=== PATIENT | female | born 1985 | race Caucasian/White ===

== ENCOUNTER 2017-07-16 17:05 | Emergency (ER) | payer OTHER ==
[2017-07-16] MEDS ORDERED: NACL 0.9% 1000 ML 1,000 ML IV ONE ×2 (17:35→20:29)
[2017-07-16] MEDS ORDERED: MORPHINE IV ONE ×2 (17:35→19:49)
--- NOTE | 2017-07-16 17:52 | Emergency Department Report ---
HPI - General Chief Complaint: Abdominal Pain Time Seen by Provider: 07/16/17 17:29 - HPI HPI: This is a 32 year-old female presents to the emergency department via EMS with complaint of some midsternal chest discomfort as well as some upper abdominal pain, associated with nausea and vomiting, that has been going on since this morning. She did not take anything for her symptoms prior to presentation. She has a history of an appendectomy and previous back surgery, otherwise denies any past medical history. She does not have a primary care physician. She occasionally will smoke marijuana and drink alcohol but denies any excessive use today and denies any other illicit drug use. No recent travel or sick contacts at home. She denies tobacco smoking. ED Past Medical Hx - Past Medical History Previous Medical History?: No - Surgical History Past Surgical History?: Yes Hx Appendectomy: Yes Additional Surgical History: Back surgery - Social History Smoking Status: Current Some Day Smoker Substance Use Type: Alcohol, Marijuana - Medications Home Medications: Home Medications Medication Instructions Recorded Confirmed Last Taken Type HYDROcodone/APAP 5-325 [[place] 1 each PO Q6HR PRN #10 tablet 07/16/17 Unknown Rx 5/325] Metoclopramide [Reglan] 10 mg PO TID PRN #10 tab 07/16/17 Unknown Rx ED Review of Systems ROS: Stated complaint: N/V,BODY PAIN Other details as noted in HPI Comment: All other systems reviewed and negative Constitutional: denies: chills, fever Eyes: denies: eye pain, eye discharge, vision change ENT: denies: ear pain, throat pain Respiratory: denies: cough, shortness of breath, wheezing Cardiovascular: chest pain. denies: palpitations Gastrointestinal: abdominal pain, nausea, vomiting Genitourinary: denies: urgency, dysuria, discharge Musculoskeletal: denies: back pain, joint swelling, arthralgia Skin: denies: rash, lesions Neurological: denies: headache, weakness, paresthesias Physical Exam - Physical Exam Vital Signs: Vital Signs 07/16/17 07/16/17 07/16/17 17:12 17:14 17:35 Temperature 97.7 F Pulse Rate 83 69 Respiratory 20 18 16 Rate Blood Pressure 142/89 [Right] O2 Sat by Pulse 100 100 Oximetry 07/16/17 17:38 Temperature Pulse Rate Respiratory 20 Rate Blood Pressure [Right] O2 Sat by Pulse 100 Oximetry Physical Exam: GENERAL: The patient is well-developed well-nourished. HENT: Normocephalic. Atraumatic. Patient has moist mucous membranes. EYES: Extraocular motions are intact. Pupils equal reactive to light bilaterally. NECK: Supple. Trachea is midline. CHEST/LUNGS: Clear to auscultation. No tachypnea or accessory muscle use. There is no respiratory distress noted. HEART/CARDIOVASCULAR: Regular. There is no tachycardia. There is no gallop rub or murmur. ABDOMEN: Abdomen is soft. Tenderness to palpation to the upper quadrants of the abdomen. No guarding or rebound tenderness. Patient has normal bowel sounds. There is no abdominal distention. SKIN: Skin is warm and dry. NEURO: The patient is awake, alert, and oriented. The patient is cooperative. The patient has no focal neurologic deficits. The patient has normal speech. MUSCULOSKELETAL: There is no tenderness or deformity. There is no limitation range of motion. There is no evidence of acute injury. ED Course Vital Signs 07/16/17 07/16/17 07/16/17 17:12 17:14 17:35 Temperature 97.7 F Pulse Rate 83 69 Respiratory 20 18 16 Rate Blood Pressure 142/89 [Right] O2 Sat by Pulse 100 100 Oximetry 07/16/17 17:38 Temperature Pulse Rate Respiratory 20 Rate Blood Pressure [Right] O2 Sat by Pulse 100 Oximetry ED Medical Decision Making - Lab Data Result diagrams: 07/16/17 17:48 07/16/17 17:48 - EKG Data -: EKG Interpreted by Me EKG shows normal: sinus rhythm, axis, intervals (prolonged CA interval indicating first-degree AV block), QRS complexes, ST-T waves (T-wave inversion to anterior leads, V2) Rate: bradycardia (59 bpm) - EKG Data When compared to previous EKG there are: previous EKG unavailable Interpretation: other (sinus rhythm, prolonged CA interval indicating first- degree AV block, T-wave inversion to the anterior lead) - Radiology Data Radiology results: report reviewed, image reviewed interpreted by me: Chest x-ray does not show any acute process. There are no pleural effusions, obvious pneumonia and there is no pneumothorax. X-ray of the abdomen does not show any acute process. Nonspecific nonobstructive bowel gas. PROCEDURE: CT ABDOMEN PELVIS W CON TECHNIQUE: Computerized axial tomography of the abdomen and pelvis was performed after the IV injection of iodinated nonionic contrast. HISTORY: Abd pain COMPARISON: No prior studies are available for comparison. FINDINGS: A 2 millimeters subpleural nodule is partially visualized in the lateral segment left lower lobe. 6 millimeter subpleural nodule is noted in the supradiaphragmatic region right lower lobe. Multiple small cystic lesions are noted in bilateral lobes of liver largest measuring 6 millimeters located and segment 7/8 of right lobe. A moderate degree hiatal hernia is noted., and adrenal glands are within normal limits. Bilateral kidneys demonstrate uniform enhancement without hydronephrosis. Aorta is of normal caliber. There is no free air in the peritoneal cavity. Minimal free fluid is noted in the pelvic cavity which is within physiologic limits. Gallbladder is unremarkable. Small bowel loops are within normal limits. Appendix is not distinctly visualized. There are no inflammatory changes in the right lower quadrant. 1.8 x 2.0 centimeters cystic lesion is noted in the left adnexal region. 1.3 x 1.2 centimeters cystic lesion is noted in the right adnexal region. IMPRESSION: Small cystic lesions of liver are most likely of benign etiology. Follow-up studies are recommended. Moderate degree hiatal hernia. Small cystic lesions of bilateral adnexal regions most likely represent ovarian follicles. Small nodular lesions of visualized bilateral lower lungs may be further evaluated using a CT chest. - Medical Decision Making 32-year-old female presents with upper abdominal pain and chest pain along with nausea and vomiting. Labs do show signs of dehydration with a low CO2 level and 80 ketones in the urine. Negative troponins 2. Chest x-ray does not show any acute process. Abdominal x-ray shows nonspecific nonobstructive bowel gas. EKG does show some abnormalities with at least a first-degree AV block secondary to prolonged CA interval. On the first EKG there also appears to be a short portion that appears consistent with a Type II [place], but the repeat EKG only shows the first-degree AV block. CT of the abdomen and pelvis shows some questionable liver lesions and lower pulmonary nodules and a moderate hiatal hernia. She was given IV fluid, pain medication, antiemetics and she was reevaluated multiple times for multiple hours and eventually is feeling much better. She was able to display the ability to keep down fluid and orally rehydrate herself. Vital signs stable throughout her ED course. She was discharged home with a referral for cardiology secondary to her chest pain and abnormal EKG with first-degree AV block. She was given a referral for gastroenterology secondary to her abdominal pain and hiatal hernia. She will return to the ER with any worsening of her symptoms or any acute distress. She is not complaining of any significant shortness of breath, does not have any tachycardia or tachypnea. She is low on the well's score criteria and negative on the pulmonary embolus rule out criteria. She is low on the heart score criteria and has a BEATRIZ score of 1. - Differential Diagnosis AL, first degree AV block, hiatal hernia, pancreatitis, gastritis Critical Care Time: No Critical care attestation.: If time is entered above; I have spent that time in minutes in the direct care of this critically ill patient, excluding procedure time. ED Disposition Clinical Impression: Hiatal hernia, First degree AV block Chest pain Qualifiers: Chest pain type: unspecified Qualified Code(s): R07.9 - Chest pain, unspecified Abdominal pain Qualifiers: Abdominal location: upper abdomen, unspecified Qualified Code(s): R10.10 - Upper abdominal pain, unspecified Nausea & vomiting Qualifiers: Vomiting type: unspecified Vomiting Intractability: non-intractable Qualified Code(s): R11.2 - Nausea with vomiting, unspecified Disposition: DC-01 TO HOME OR SELFCARE Is pt being admited?: No Condition: Stable Instructions: Chest Pain (ED), Hiatal Hernia (ED), Abdominal Pain (ED) Additional Instructions: Please increase your oral rehydration. Follow up with your primary care physician in the next few days. I have given you a referral for a local customer retention representative, Dr. Santamaria, regarding your first-degree AV block and your chest pain. I have given you a referral for a local oceanographer assistant, Dr. Seymour, to follow up regarding your hiatal hernia and abdominal pain. Return to the emergency Department with any worsening of your symptoms or any acute distress. You have been prescribed a medication that is sedating and therefore should not be taken prior to driving, working, and responsible for children and in no way should be mixed with alcohol of any quantity. Prescriptions: HYDROcodone/APAP 5-325 [[place] 5/325] 1 each PO Q6HR PRN #10 tablet PRN Reason: Pain Metoclopramide [Reglan] 10 mg PO TID PRN #10 tab PRN Reason: Nausea Referrals: PRIMARY CARE, [Primary Care Provider] - 3-5 Days GINA SANTAMARIA MD [Staff Physician] - 3-5 Days SHERRY SEYMOUR MD [Staff Physician] - 3-5 Days Time of Disposition: 21:45
[2017-07-16 18:26] LABS: Basophils % (Auto) 0.4 % (0.0-1.8); Hematocrit 36.7 % (30.3-42.9); Hemoglobin 12.1 gm/dl (10.1-14.3); Mean Corpuscular HGB Conc 33 % (30-34); Mean Corpuscular Hemoglobin 29 pg (28-32); Mean Corpuscular Volume 88 fl (79-97); Platelet Count 288 K/mm3 (140-440); Red Blood Count 4.15 M/mm3 (3.65-5.03); Red Cell Distribution Width 14.3 % (13.2-15.2); White Blood Count 12.2 K/mm3 (4.5-11.0)
[2017-07-16 18:35] LABS: Alanine Aminotransferase 12 units/L (7-56); Albumin 4.2 g/dL (3.9-5); Albumin/Globulin Ratio 1.3 %; Alkaline Phosphatase 54 units/L (35-129); Anion Gap 23 mmol/L; Blood Urea Nitrogen 7 mg/dL (7-17); Calcium 8.9 mg/dL (8.4-10.2); Carbon Dioxide 17 mmol/L (22-30); Glucose 110 mg/dL (65-100); Lipase 40 units/L (13-60); Potassium 3.7 mmol/L (3.6-5.0); Sodium 141 mmol/L (137-145); Total Protein 7.4 g/dL (6.3-8.2)
[2017-07-16] MEDS ORDERED: TORADOL IV ONE (19:13)
[2017-07-16] MEDS ORDERED: MORPHINE ONE (19:54)
--- NOTE | 2017-07-16 20:23 | Ultrasound Report ---
FINAL REPORT PROCEDURE: US ABDOMEN LIMITED TECHNIQUE: Real-time sonography was performed of the right upper quadrant with image documentation. CPT 90993 HISTORY: Upper abd pain COMPARISON: No prior studies are available for comparison. FINDINGS: Visualized pancreatic head and body is unremarkable. Liver demonstrates normal echotexture without focal lesions. Proximal aorta is of normal caliber. Gallbladder is well distended with normal outlines are normal wall thickness without calculi or pericholecystic collections. Common duct is 3 millimeters in caliber. Right kidney measures 9.4 x 3.7 x 5.6 centimeters with normal echotexture. No renal calculi or hydronephrosis are noted. . IMPRESSION: Unremarkable study
--- NOTE | 2017-07-16 20:25 | XRay Report ---
FINAL REPORT PROCEDURE: XR ABD SERIES W CXR 1V TECHNIQUE: Abdominal series complete, including supine and upright AP views of the abdomen and frontal chest. HISTORY: CP, abd pain COMPARISON: No prior studies are available for comparison. FINDINGS: Heart: Normal. Mediastinum/Vessels: Normal. Lungs/Pleural space: Normal. Bowel gas pattern: Nonobstructive. Masses or calcifications: Multiple phleboliths are identified in the pelvis.. Bony structures: No acute osseous abnormality. Other: No free intraperitoneal air. IMPRESSION: Multiple phleboliths are identified in the pelvis. If a ureteral calculus is suspected CT scan is recommended. Nonspecific intestinal gas pattern..
[2017-07-16] MEDS ORDERED: NACL ONE (20:44)
--- NOTE | 2017-07-16 21:31 | Cat Scan Report ---
FINAL REPORT PROCEDURE: CT ABDOMEN PELVIS W CON TECHNIQUE: Computerized axial tomography of the abdomen and pelvis was performed after the IV injection of iodinated nonionic contrast. HISTORY: Abd pain COMPARISON: No prior studies are available for comparison. FINDINGS: A 2 millimeters subpleural nodule is partially visualized in the lateral segment left lower lobe. 6 millimeter subpleural nodule is noted in the supradiaphragmatic region right lower lobe. Multiple small cystic lesions are noted in bilateral lobes of liver largest measuring 6 millimeters located and segment 7/8 of right lobe. A moderate degree hiatal hernia is noted., and adrenal glands are within normal limits. Bilateral kidneys demonstrate uniform enhancement without hydronephrosis. Aorta is of normal caliber. There is no free air in the peritoneal cavity. Minimal free fluid is noted in the pelvic cavity which is within physiologic limits. Gallbladder is unremarkable. Small bowel loops are within normal limits. Appendix is not distinctly visualized. There are no inflammatory changes in the right lower quadrant. 1.8 x 2.0 centimeters cystic lesion is noted in the left adnexal region. 1.3 x 1.2 centimeters cystic lesion is noted in the right adnexal region. IMPRESSION: Small cystic lesions of liver are most likely of benign etiology. Follow-up studies are recommended. Moderate degree hiatal hernia. Small cystic lesions of bilateral adnexal regions most likely represent ovarian follicles. Small nodular lesions of visualized bilateral lower lungs may be further evaluated using a CT chest.
[2017-07-16 21:57] LABS: Bilirubin,Urine NEG (Negative); Blood,Urine NEG (Negative); Ketones,Urine 80 mg/dL (Negative); Leukocyte Esterase,Urine NEG (Negative); Mucus,Urine 1+ /HPF; Nitrite,Urine NEG (Negative); Urobilinogen,Urine < 2.0 mg/dL (<2.0); WBC,Urine < 1.0 /HPF (0.0-6.0)
[2017-07-16 22:08] VITALS: BP 119/67
[2017-07-17] MEDS ORDERED: WATER FOR IRRIG STERILE IR ONE (12:09)
== END 2017-07-16 22:07 | disposition home or self-care (01) ==
LOC: ED 17:05
DX: K44.9 Diaphragmatic hernia without obstruction or gangrene (principal); I44.0 Atrioventricular block, first degree; F17.210 Nicotine dependence, cigarettes, uncomplicated; F12.10 Cannabis abuse, uncomplicated
CPT/HCPCS: 36415; 74022; 74177; 76705; 80053; 81001; 83690; 84484; 84703; 85025; 93005; 93010; 96361; 96374; 96375; 96376; 99285; J1885; J2270; J7030; Q9967

== ENCOUNTER 2017-07-17 01:01 | Inpatient (IN) | payer OTHER ==
[2017-07-17] MEDS ORDERED: NACL 0.9% 1000 ML 1,000 ML IV ONE (02:09)
[2017-07-17] MEDS ORDERED: ZOFRAN IV ONE (02:23)
[2017-07-17] MEDS ORDERED: ZOFRAN ONE (02:27)
[2017-07-17 02:32] LABS: Basophils % (Auto) 0.3 % (0.0-1.8); Hematocrit 34.3 % (30.3-42.9); Hemoglobin 11.8 gm/dl (10.1-14.3); Mean Corpuscular HGB Conc 35 % (30-34); Mean Corpuscular Hemoglobin 30 pg (28-32); Mean Corpuscular Volume 88 fl (79-97); Platelet Count 249 K/mm3 (140-440); Red Blood Count 3.91 M/mm3 (3.65-5.03); Red Cell Distribution Width 14.5 % (13.2-15.2)
[2017-07-17 02:46] LABS: Anion Gap 23 mmol/L; Blood Urea Nitrogen 7 mg/dL (7-17); Calcium 8.8 mg/dL (8.4-10.2); Carbon Dioxide 23 mmol/L (22-30); Chloride 103.3 mmol/L (98-107); Glucose 100 mg/dL (65-100); Potassium 4.1 mmol/L (3.6-5.0); Sodium 145 mmol/L (137-145)
[2017-07-17] MEDS ORDERED: PEPCID IV ONE (02:53)
[2017-07-17] MEDS ORDERED: MORPHINE IV ONE (02:53)
--- NOTE | 2017-07-17 05:11 | Emergency Department Report ---
ED GI Bleed HPI - General Chief complaint: GI Bleed Stated complaint: EMESIS/BLOOD Time Seen by Provider: 07/17/17 02:13 Source: patient, old records reviewed Mode of arrival: Ambulatory Limitations: No Limitations - History of Present Illness Initial comments: 32-year-old female with history of previous appendectomy presents to the hospital complaining of some abdominal pain, chest discomfort, nausea, vomiting , and by mouth intolerance. Patient complains of epigastric and right upper quadrant pain that is constant, aching, worse with palpation. No alleviating factors. Patient also complaining of anterior reproducible sternal/chest wall tenderness. Patient also having intermittent diarrhea. Onset was yesterday. Patient was discharged at 9 PM after receiving treatment in the ED including CT abdomen and pelvis, ultrasound, and x-rays. Patient was tolerating by mouth and feeling better prior to discharge. Patient states that several hours after going home she attempted to drink when shoes and began to vomit again. Initially vomitus was blood-streaked but then became grossly bloody and therefore patient return to the ER for evaluation. Patient did not fill the prescribed Reglan and hydrocodone upon discharge. Severity scale (0 -10): 0 - Related Data Previous Rx's Medication Instructions Recorded Last Taken Type HYDROcodone/APAP 5-325 [[place] 1 each PO Q6HR PRN #10 tablet 07/16/17 Unknown Rx 5/325] Metoclopramide [Reglan] 10 mg PO TID PRN #10 tab 07/16/17 Unknown Rx Allergies Allergy/AdvReac Type Severity Reaction Status Date / Time Penicillins Allergy Swelling Verified 07/16/17 17:20 ED Review of Systems ROS: Stated complaint: EMESIS/BLOOD Other details as noted in HPI Comment: All other systems reviewed and negative Other: Constitutional: No fevers chills Eyes: No eye pain visual changes ENT: No ear pain or throat pain Neck: Denies pain Respiratory: Denies cough wheezing shortness of breath Cardiovascular: Denies palpitations, syncope GI: As per HPI : Denies dysuria Musculoskeletal: Denies back pain Skin: Denies rash, lesions, erythema Neurologic: Denies headache, numbness, weakness Psychiatric: Denies suicidal ideation, hallucinations ED Past Medical Hx - Past Medical History Previous Medical History?: Yes Additional medical history: hiatal hernia, first degree AV block - Surgical History Hx Appendectomy: Yes Additional Surgical History: Back surgery - Social History Smoking Status: Current Some Day Smoker Substance Use Type: None - Medications Home Medications: Home Medications Medication Instructions Recorded Confirmed Last Taken Type HYDROcodone/APAP 5-325 [[place] 1 each PO Q6HR PRN #10 tablet 07/16/17 Unknown Rx 5/325] Metoclopramide [Reglan] 10 mg PO TID PRN #10 tab 07/16/17 Unknown Rx ED Physical Exam - General Limitations: No Limitations - Other Other exam information: General: No limitations, patient is alert in no acute distress Head exam: Atraumatic, normocephalic Eyes exam: Normal appearance, pupils equal reactive to light, extraocular movements intact ENT: Moist mucous membrane, normal oropharynx Neck exam: Normal inspection, full range of motion, no meningismus nontender Respiratory exam: Clear to auscultation bilateral, no wheezes, rales, crackles Cardiovascular: Normal rate and rhythm, normal heart sounds, reproducible midsternal chest wall tenderness Abdomen: Soft, nondistended, right upper quadrant and epigastric tenderness, with normal bowel sounds, no rebound, or guarding Extremity: Full range of motion normal inspection no deformity Back: Normal Inspection, full range of motion, no tenderness Neurologic: Alert, oriented x3, cranial nerves intact, no motor or sensory deficit Psychiatric: normal affect, normal mood Skin: Warm, dry, intact ED Course Vital Signs 07/17/17 07/17/17 07/17/17 01:24 03:11 04:16 Temperature 98.2 F Pulse Rate 64 81 70 Respiratory 14 18 18 Rate Blood Pressure 115/65 Blood Pressure 115/65 113/71 106/68 [Left] O2 Sat by Pulse 100 100 Oximetry - Reevaluation(s) Reevaluation #1: 07/17/17 Patient received Pepcid, Zofran, normal saline. No further vomiting ED Medical Decision Making - Lab Data Result diagrams: 07/17/17 02:14 07/17/17 02:14 Lab Results 07/17/17 07/17/17 Range/Units 02:14 02:14 WBC 8.0 (4.5-11.0) K/mm3 RBC 3.91 (3.65-5.03) M/mm3 Hgb 11.8 (10.1-14.3) gm/dl Hct 34.3 (30.3-42.9) % MCV 88 (79-97) fl MCH 30 (28-32) pg MCHC 35 H (30-34) % RDW 14.5 (13.2-15.2) % Plt Count 249 (140-440) K/mm3 Lymph % (Auto) 15.6 (13.4-35.0) % [place] % (Auto) 4.9 (0.0-7.3) % Eos % (Auto) 0.0 (0.0-4.3) % Baso % (Auto) 0.3 (0.0-1.8) % Lymph # 1.3 (1.2-5.4) K/mm3 [place] # 0.4 (0.0-0.8) K/mm3 Eos # 0.0 (0.0-0.4) K/mm3 Baso # 0.0 (0.0-0.1) K/mm3 Seg Neutrophils % 79.2 H (40.0-70.0) % Seg Neutrophils # 6.4 (1.8-7.7) K/mm3 Sodium 145 (137-145) mmol/L Potassium 4.1 (3.6-5.0) mmol/L Chloride 103.3 (98-107) mmol/L Carbon Dioxide 23 (22-30) mmol/L Anion Gap 23 mmol/L BUN 7 (7-17) mg/dL Creatinine 0.7 (0.7-1.2) mg/dL Estimated GFR > 60 ml/min BUN/Creatinine Ratio 10.00 % Glucose 100 (65-100) mg/dL Calcium 8.8 (8.4-10.2) mg/dL - Medical Decision Making h/h stable, improved bicarb compared to previous I suspect the patient's hematemesis is secondary to Fabiana-Garcia tear. Patient returned home and did not fill prescription and therefore was symptoms return she did not have any medications for pain or nausea. Patient will be admitted to the hospital today for further stabilization prior to discharge. No surgical emergency identified at this time Patient treated with Pepcid, morphine, Zofran, and normal sounding in the ED - Differential Diagnosis gastritis, hiatal hernia, gastroenteritis, renal colic, PUD, Fabiana-Garcia Critical Care Time: No Critical care attestation.: If time is entered above; I have spent that time in minutes in the direct care of this critically ill patient, excluding procedure time. ED Disposition Clinical Impression: Hiatal hernia, Abdominal pain, Nausea & vomiting, Chest wall pain, First degree AV block, Hematemesis Disposition: OP ADMIT IP TO THIS HOSP Is pt being admited?: Yes Condition: Stable Time of Disposition: 05:12 (Dr Bro/hosp)
[2017-07-17] MEDS ORDERED: TYLENOL PO PRN (07:49)
[2017-07-17] MEDS ORDERED: DULCOLAX PR PRN (07:49)
[2017-07-17] MEDS ORDERED: REGLAN PO PRN (07:53)
--- NOTE | 2017-07-17 07:57 | History and Physical Report ---
<TOI RAYGOZA - Last Filed: 07/17/17 11:41> History of Present Illness Date of examination: 07/17/17 Date of admission: 07/17/17 05:12 Chief complaint: epigastric pain with N/V/D and N/V with hematemesis. History of present illness: Patient is a 32 years old black female with past medical who presents to the hospital complaining of some abdominal pain, chest discomfort, nausea, vomiting, and by mouth intolerance. The abdominal pain has been gradually worsening over the past 2-3 days. The pain has not changed or worsened acutely. The pain is located in the epigastric region and worst on the right upper quadrant of the abdomen. It does not radiate. The pain is relatively constant throughout the day and night but does vary in severity. She rates the pain as 7/10 at its worst. she describes the pain constant, aching and burning pain worse with palpation. No alleviating factors. She has not tried taking any medicines to relieve the pain. The pain is not alleviated with rest. She reports multiple episodes of N/V throughout the day yesterday and then developed nausea and vomiting with bright red blood last night multiple episodes. Patient also complaining of anterior reproducible sternal/chest wall tenderness. Patient also having intermittent diarrhea with black stools yesterday. Patient came on 07/16/2017to the Emergency department for evaluation and underwent an EKG, abd CT, abd u/s, x-rays and labs and was d/c home with Rx of Reglan and hydrocodone, but not fill the prescribed medication upon discharge. She returned back to the ER last night after developing N/V with hematemesis. She denies any recent hemoptysis, constipation, hematochezia. She denies shortness of breath, lightheadedness and dizziness. She does not smoke, drink alcohol, or use drugs. She recalls a past history of similar pain, but has never had any diagnostic workup. Past History Past Medical History: anemia Past Surgical History: No surgical history Social history: denies: smoking, alcohol abuse Family history: hypertension Medications and Allergies Allergies Allergy/AdvReac Type Severity Reaction Status Date / Time Penicillins Allergy Swelling Verified 07/16/17 17:20 Home Medications Medication Instructions Recorded Confirmed Last Taken Type HYDROcodone/APAP 5-325 [[place] 1 each PO Q6HR PRN #10 tablet 07/16/17 Unknown Rx 5/325] Metoclopramide [Reglan] 10 mg PO TID PRN #10 tab 07/16/17 Unknown Rx Active Meds: Active Medications Acetaminophen (Tylenol) 650 mg PO Q4H PRN PRN Reason: Pain MILD(1-3)/Fever >100.5/DEL CID Bisacodyl (Dulcolax) 10 mg ND QDAY PRN PRN Reason: Constipation unrelieved by MOM Dextrose/Sodium Chloride (D5ns) 1,000 mls @ 75 mls/hr IV DIRECT MERON Metoclopramide HCl (Reglan) 10 mg PO TID PRN PRN Reason: Nausea Morphine Sulfate (Morphine) 2 mg IV Q4H PRN PRN Reason: Pain, Moderate (4-6) Ondansetron HCl (Zofran) 4 mg IM Q4H PRN PRN Reason: Nausea And Vomiting Pantoprazole Sodium (Protonix) 40 mg IV BID MERON Review of Systems Constitutional: no weight gain, no fever, no chills, no sweats, no night sweats Ears, nose, mouth and throat: no ear discharge, no tinnitis, no decreased hearing, no nose pain, no nasal congestion Breasts: no change in shape, no swelling Cardiovascular: no orthopnea, no palpitations, no rapid/irregular heart beat Respiratory: no cough with sputum, no excessive sputum, no hemoptysis Gastrointestinal: abdominal pain, nausea, vomiting, diarrhea, hematemesis, melena, loss of appetite, no constipation, no hematochezia Genitourinary Female: no flank pain, no menorrhagia, no dysuria, no urinary frequency, no urgency, no stress incontinence, no post void dribbling Menstruation: no post hysterectomy, no ammenorrhea, no period normal, no period heavy Rectal: no incontinence, no bleeding Musculoskeletal: no neck stiffness, no neck pain, no shooting arm pain Integumentary: no pruritis, no redness, no sores, no wounds Neurological: no weakness, no parathesias, no numbness, no tingling, no seizures Psychiatric: no memory loss, no change in sleep habits, no sleep disturbances, no insomnia, no hypersomnia, no change in appetite Endocrine: no heat intolerance, no polyphagia, no excessive thirst, no polydipsia, no polyuria Hematologic/Lymphatic: no easy bruising, no easy bleeding Allergic/Immunologic: no urticaria, no allergic rhinitis, no wheezing Exam - Constitutional Vitals: Temp Pulse Resp BP Pulse Ox 98.2 F 70 18 106/68 100 07/17/17 01:24 07/17/17 04:16 07/17/17 04:16 07/17/17 04:16 07/17/17 03:11 General appearance: Present: no acute distress - EENT Eyes: Present: PERRL ENT: hearing intact - Neck Neck: Present: supple - Respiratory Respiratory effort: normal Respiratory: bilateral: CTA - Cardiovascular Heart rate: 63 Rhythm: regular Heart Sounds: Present: S1 & S2 - Extremities Extremities: no ischemia Peripheral Pulses: within normal limits - Abdominal General gastrointestinal: Present: soft, non-tender Female genitourinary: Present: deferred - Rectal Rectal Exam: deferred - Integumentary Integumentary: Present: clear, warm, dry - Musculoskeletal Musculoskeletal: strength equal bilaterally - Psychiatric Psychiatric: appropriate mood/affect - Neurologic Neurologic: CNII-XII intact - Allied Health Allied health notes reviewed: nursing Results - Labs CBC & Chem 7: 07/17/17 02:14 07/17/17 02:14 Labs: Laboratory Last Values WBC 8.0 K/mm3 (4.5-11.0) 07/17/17 02:14 RBC 3.91 M/mm3 (3.65-5.03) 07/17/17 02:14 Hgb 11.8 gm/dl (10.1-14.3) 07/17/17 02:14 Hct 34.3 % (30.3-42.9) 07/17/17 02:14 MCV 88 fl (79-97) 07/17/17 02:14 MCH 30 pg (28-32) 07/17/17 02:14 MCHC 35 % (30-34) H 07/17/17 02:14 RDW 14.5 % (13.2-15.2) 07/17/17 02:14 Plt Count 249 K/mm3 (140-440) 07/17/17 02:14 Lymph % (Auto) 15.6 % (13.4-35.0) 07/17/17 02:14 Pettis % (Auto) 4.9 % (0.0-7.3) 07/17/17 02:14 Eos % (Auto) 0.0 % (0.0-4.3) 07/17/17 02:14 Baso % (Auto) 0.3 % (0.0-1.8) 07/17/17 02:14 Lymph # 1.3 K/mm3 (1.2-5.4) 07/17/17 02:14 Pettis # 0.4 K/mm3 (0.0-0.8) 07/17/17 02:14 Eos # 0.0 K/mm3 (0.0-0.4) 07/17/17 02:14 Baso # 0.0 K/mm3 (0.0-0.1) 07/17/17 02:14 Seg Neutrophils % 79.2 % (40.0-70.0) H 07/17/17 02:14 Seg Neutrophils # 6.4 K/mm3 (1.8-7.7) 07/17/17 02:14 Sodium 145 mmol/L (137-145) 07/17/17 02:14 Potassium 4.1 mmol/L (3.6-5.0) 07/17/17 02:14 Chloride 103.3 mmol/L (98-107) 07/17/17 02:14 Carbon Dioxide 23 mmol/L (22-30) 07/17/17 02:14 Anion Gap 23 mmol/L 07/17/17 02:14 BUN 7 mg/dL (7-17) 07/17/17 02:14 Creatinine 0.7 mg/dL (0.7-1.2) 07/17/17 02:14 Estimated GFR > 60 ml/min 07/17/17 02:14 BUN/Creatinine Ratio 10.00 % 07/17/17 02:14 Glucose 100 mg/dL (65-100) 07/17/17 02:14 Calcium 8.8 mg/dL (8.4-10.2) 07/17/17 02:14 - Imaging and Cardiology CT scan - abdomen: image reviewed (small cystic lesion of liver are most likely of benign etiology. Hiatal of hernia. Small cystic lesion of bilateral adnexal regions most likely represents ovarian follicles. Small nodular lesions bilateral lower lungs.) Assessment and Plan Assessment and plan: Patient is a 32 years old black female with past medical who presents to the hospital complaining of some abdominal pain, chest discomfort, nausea, vomiting, and by mouth intolerance. The abdominal pain has been gradually worsening over the past 2-3 days. The pain has not changed or worsened acutely. The pain is located in the epigastric region and worst on the right upper quadrant of the abdomen PLAN Upper GI bleed Etiology most likely due to Fabiana Garcai tear Abdominal u/s-unremarkable Abdominal CT-showed hiatal herni Currently HGB 11.8 Continue to monitor H/H and transfuse as needed No active signs of bleeding this am hemodynamically stable. Chest Discomfort Most likely due to gastritis or peptic ulcer disease. EKG showed first degree AV block Negative cardiac enzyme troponin X3 Morphine ordered for pain Hematemesis etiology most likely due to Fabiana Garcia tear Currently HGB 11.8 Continue to monitor H/H and transfuse as needed No active signs of bleeding this am hemodynamically stable Continue PPI Keep NPO GI consulted for possible EGD this afternoon for further evaluation and to r/o other GI pathology. Melena Stool occult blood ordered Abdominal/epigastric pain Most likely due to gastritis or peptic ulcer disease. Continue on PPI GI consult DVT prophylaxis SCD due to suspected GI bleed Advance Directives: Yes VTE prophylaxis?: Chemical Contraindication Mechanical VTE Prophylaxis: Treatment Not Indicated Plan of care discussed with patient/family: Yes <RIVER MORALES - Last Filed: 07/17/17 13:20> History of Present Illness Date of admission: 07/17/17 05:12 Medications and Allergies Active Meds: Active Medications Acetaminophen (Tylenol) 650 mg PO Q4H PRN PRN Reason: Pain MILD(1-3)/Fever >100.5/DEL CID Bisacodyl (Dulcolax) 10 mg ND QDAY PRN PRN Reason: Constipation unrelieved by MOM Dextrose/Sodium Chloride (D5ns) 1,000 mls @ 75 mls/hr IV DIRECT MERON Last Admin: 07/17/17 10:53 Dose: 75 mls/hr Sodium Chloride (Nacl 0.9% 1000 Ml) 1,000 mls @ 50 mls/hr IV DIRECT MERON Stop: 07/17/17 23:59 Last Admin: 07/17/17 12:34 Dose: 50 mls/hr Metoclopramide HCl (Reglan) 10 mg PO TID PRN PRN Reason: Nausea Morphine Sulfate (Morphine) 2 mg IV Q4H PRN PRN Reason: Pain, Moderate (4-6) Last Admin: 07/17/17 10:53 Dose: 2 mg Ondansetron HCl (Zofran) 4 mg IV Q4H PRN PRN Reason: Nausea And Vomiting Pantoprazole Sodium (Protonix) 40 mg IV BID MERON Last Admin: 07/17/17 12:01 Dose: 40 mg Exam - Constitutional Vitals: Temp Pulse Resp BP Pulse Ox 97.3 F L 75 10 L 101/58 98 07/17/17 12:53 07/17/17 12:53 07/17/17 12:53 07/17/17 12:53 07/17/17 12:53 Results - Labs CBC & Chem 7: 07/17/17 02:14 07/17/17 02:14 Labs: Laboratory Last Values WBC 8.0 K/mm3 (4.5-11.0) 07/17/17 02:14 RBC 3.91 M/mm3 (3.65-5.03) 07/17/17 02:14 Hgb 11.8 gm/dl (10.1-14.3) 07/17/17 02:14 Hct 34.3 % (30.3-42.9) 07/17/17 02:14 MCV 88 fl (79-97) 07/17/17 02:14 MCH 30 pg (28-32) 07/17/17 02:14 MCHC 35 % (30-34) H 07/17/17 02:14 RDW 14.5 % (13.2-15.2) 07/17/17 02:14 Plt Count 249 K/mm3 (140-440) 07/17/17 02:14 Lymph % (Auto) 15.6 % (13.4-35.0) 07/17/17 02:14 Pettis % (Auto) 4.9 % (0.0-7.3) 07/17/17 02:14 Eos % (Auto) 0.0 % (0.0-4.3) 07/17/17 02:14 Baso % (Auto) 0.3 % (0.0-1.8) 07/17/17 02:14 Lymph # 1.3 K/mm3 (1.2-5.4) 07/17/17 02:14 Pettis # 0.4 K/mm3 (0.0-0.8) 07/17/17 02:14 Eos # 0.0 K/mm3 (0.0-0.4) 07/17/17 02:14 Baso # 0.0 K/mm3 (0.0-0.1) 07/17/17 02:14 Seg Neutrophils % 79.2 % (40.0-70.0) H 07/17/17 02:14 Seg Neutrophils # 6.4 K/mm3 (1.8-7.7) 07/17/17 02:14 Sodium 145 mmol/L (137-145) 07/17/17 02:14 Potassium 4.1 mmol/L (3.6-5.0) 07/17/17 02:14 Chloride 103.3 mmol/L (98-107) 07/17/17 02:14 Carbon Dioxide 23 mmol/L (22-30) 07/17/17 02:14 Anion Gap 23 mmol/L 07/17/17 02:14 BUN 7 mg/dL (7-17) 07/17/17 02:14 Creatinine 0.7 mg/dL (0.7-1.2) 07/17/17 02:14 Estimated GFR > 60 ml/min 07/17/17 02:14 BUN/Creatinine Ratio 10.00 % 07/17/17 02:14 Glucose 100 mg/dL (65-100) 07/17/17 02:14 Calcium 8.8 mg/dL (8.4-10.2) 07/17/17 02:14 Assessment and Plan Assessment and plan: I saw and evaluated the patient. I agree with the findings and the plan of care as documented in the Nurse Practitioner's H/P note. Patient has EGD, and showed gastritis, will monitor for bleeding. Advance Directives: Yes (full code) VTE prophylaxis?: Mechanical Reason for no VTE Prophylaxis: Bleeding Plan of care discussed with patient/family: Yes
--- NOTE | 2017-07-17 10:20 | Gastroenterology Consultation ---
<BENITEZVICKSANDY Cooper - Last Filed: 07/17/17 10:34> History of Present Illness - Reason for Consult Consult date: 07/17/17 [facility] Requesting physician: TOI RAYGOZA - History of Present Illness Patient is a 32 y/o female who was admitted for a GI bleed. She began having epigastric pain with N/V/D and chest discomfort yesterday morning. She came to the ER for evaluation and underwent an EKG, abd CT, abd u/s, x-rays and labs and was d/c home with Rx of Reglan and hydrocodone. She returned back to the ER last night after developing N/V with hematemesis. This morning pt was resting in bed. No acute distress. C/o continued epigastric pain that is sharp, constant , and non-radiating, along with nausea and c/o chest discomfort described as burning. She reports multiple episodes of N/V throughout the day yesterday and then developed N/V with bright red blood last night x 3-4 episodes. She also admits to black stools yesterday. No active signs of bleeding this morning. Denies fever, wt loss, SOB, dizziness, constipation, or hematochezia. Takes NSAIDs PRN at home on average 1-2 times per month. No hx of liver diseas. No previous EGD. Past History Past Medical History: No medical history Past Surgical History: appendectomy, Other (back) Social history: smoking, other (marijuana) Medications and Allergies Allergies Allergy/AdvReac Type Severity Reaction Status Date / Time Penicillins Allergy Swelling Verified 07/16/17 17:20 Home Medications Medication Instructions Recorded Confirmed Last Taken Type HYDROcodone/APAP 5-325 [[place] 1 each PO Q6HR PRN #10 tablet 07/16/17 Unknown Rx 5/325] Metoclopramide [Reglan] 10 mg PO TID PRN #10 tab 07/16/17 Unknown Rx Active Meds: Active Medications Acetaminophen (Tylenol) 650 mg PO Q4H PRN PRN Reason: Pain MILD(1-3)/Fever >100.5/DEL CID Bisacodyl (Dulcolax) 10 mg NM QDAY PRN PRN Reason: Constipation unrelieved by MOM Dextrose/Sodium Chloride (D5ns) 1,000 mls @ 75 mls/hr IV DIRECT MERON Metoclopramide HCl (Reglan) 10 mg PO TID PRN PRN Reason: Nausea Morphine Sulfate (Morphine) 2 mg IV Q4H PRN PRN Reason: Pain, Moderate (4-6) Ondansetron HCl (Zofran) 4 mg IV Q4H PRN PRN Reason: Nausea And Vomiting Pantoprazole Sodium (Protonix) 40 mg IV BID MERON Review of Systems - Review of Systems All systems: negative Gastrointestinal: abdominal pain (epigastric), nausea, vomiting, hematemesis, melena, heartburn Exam - Constitutional Vital Signs: Temp Pulse Resp BP Pulse Ox 98.6 F 63 20 109/69 99 07/17/17 08:21 07/17/17 08:21 07/17/17 08:21 07/17/17 08:20 07/17/17 08:21 General appearance: no acute distress, well-nourished - EENT Eyes: PERRL, EOM intact ENT: hearing intact - Neck Neck: supple, normal ROM - Respiratory Respiratory: bilateral: CTA - Cardiovascular Rhythm: regular Heart Sounds: Present: S1 & S2 Extremities: No edema - Gastrointestinal General gastrointestinal: Present: soft, tender (epigastric), non-distended, normal bowel sounds - Integumentary Integumentary: Present: warm, dry - Labs CBC & Chem 7: 07/17/17 02:14 07/17/17 02:14 Assessment and Plan 1.GI bleed 2.hematemesis 3.melena 4.chest discomfort 5.epigastric pain -afebrile -EKG showed first degree AV block -cardiac enzymes and chest x-ray negative -abd u/s-unremarkable -abd CT-showed hiatal hernia -HGB 11.8 -continue to monitor H/H and transfuse as needed -no active signs of bleeding this am -hemodynamically stable -etiology most likely due to Fabiana Garcia tear -continue PPI -Keep NPO -will schedule for EGD this am to for evaluation and to r/o other GI pathology -will follow <ADE AYALA - Last Filed: 07/17/17 12:18> History of Present Illness - History of Present Illness The patient was seen and examined by myself and the GI care plan, urgent endoscopy was discussed. She is in agreement. Ade C. Ayala, MD Medications and Allergies Active Meds: Active Medications Acetaminophen (Tylenol) 650 mg PO Q4H PRN PRN Reason: Pain MILD(1-3)/Fever >100.5/DEL CID Bisacodyl (Dulcolax) 10 mg NM QDAY PRN PRN Reason: Constipation unrelieved by MOM Dextrose/Sodium Chloride (D5ns) 1,000 mls @ 75 mls/hr IV DIRECT MERON Last Admin: 07/17/17 10:53 Dose: 75 mls/hr Sodium Chloride (Nacl 0.9% 1000 Ml) 1,000 mls @ 50 mls/hr IV DIRECT MERON Metoclopramide HCl (Reglan) 10 mg PO TID PRN PRN Reason: Nausea Morphine Sulfate (Morphine) 2 mg IV Q4H PRN PRN Reason: Pain, Moderate (4-6) Last Admin: 07/17/17 10:53 Dose: 2 mg Ondansetron HCl (Zofran) 4 mg IV Q4H PRN PRN Reason: Nausea And Vomiting Pantoprazole Sodium (Protonix) 40 mg IV BID [facility] Last Admin: 07/17/17 12:01 Dose: 40 mg Exam - Constitutional Vital Signs: Temp Pulse Resp BP Pulse Ox 98.6 F 63 20 109/69 99 07/17/17 08:21 07/17/17 08:21 07/17/17 08:21 07/17/17 08:20 07/17/17 08:21 - Labs CBC & Chem 7: 07/17/17 02:14 07/17/17 02:14
[2017-07-17] MEDS: MORPHINE IV PRN ×2 (10:53→23:43)
[2017-07-17] MEDS: D5NS 1,000 ML IV SCH (10:53)
[2017-07-17] MEDS: PROTONIX IV SCH ×2 (12:01→22:53)
--- NOTE | 2017-07-17 12:26 | Anesthesia Consultation ---
Anesthesia Consult and Med Hx Date of service: 07/17/17 - Airway Anesthetic Teeth Evaluation: Good ROM Head & Neck: Adequate Mental/Hyoid Distance: Adequate Mallampati Class: Class II Intubation Access Assessment: Probably Good - Pulmonary Exam CTA: Yes - Cardiac Exam Cardiac Exam: RRR - Pre-Operative Health Status ASA Pre-Surgery Classification: ASA2 Proposed Anesthetic Plan: MAC - Pulmonary Hx Smoking: Yes Hx Respiratory Symptoms: No - Cardiovascular System Hx Hypertension: No - Endocrine Hx Non-Insulin Dependent Diabetes: No - Other Systems Hx Obesity: No
--- NOTE | 2017-07-17 12:26 | Anesthesia Day of Surgery ---
Anesthesia Day of Surgery - Day of Surgery Patient Examined: Yes Patient H&P Reviewed: Yes Patient is NPO: Yes
[2017-07-17] MEDS ORDERED: XYLOCAINE 2% INFILTRATI ONE (12:38)
[2017-07-17] MEDS ORDERED: DIPRIVAN 10 MG/ML IV ONE ×2 (12:38)
--- NOTE | 2017-07-17 12:55 | Operative Report ---
Operative Report Operative Report: Date of procedure: 07-17-17 Procedure: Esophagogastroduodenoscopy Preprocedure diagnosis: Hematemesis Post procedure diagnosis: Patchy gastritis with submucosal hemorrhages. Large hiatus hernia. No Fabiana-Garcia tear or ulcer. Endoscopist: Dr. Alvarado Anesthesia: Monitored anesthesia care per anesthesia department Medications: Propofol per anesthesia Estimated blood loss: [] After careful discussion of the nature and purpose of the procedure as well as details the technique risks benefits and alternatives consent was obtained. The patient was placed in the left lateral decubitus position and medicated per anesthesia. The tip of the [employer] EQ 570 video scope was passed per orum under direct vision into the esophagus and advanced into the stomach and descending duodenum. The descending duodenum the duodenal bulb and pylorus were symmetrical and normal. The scope was withdrawn into the stomach and the stomach then gently insufflated with air. The antrum revealed patchy erythema and submucosal hemorrhages. There were no ulcers present.. The stomach was further insufflated and the scope was then retroflexed and partially withdrawn. The fundus, and body of the stomach were within normal limits and easily distensible. a fairly large hiatus hernia was seen in the fundus on retroflexed view. The scope was then withdrawn in the forward position. The esophagogastric junction was at 36 cm. Diaphragm level was at 40 cm. The esophageal body was normal throughout. The procedure was was well tolerated and the patient was observed in recovery. Impressions: Prepyloric antral gastritis with submucosal hemorrhages but no ulcers. Large hiatus hernia. Low risk for rebleeding. Plan: Advance diet as tolerated. Continue PPI therapy. I will sign off and follow up as needed. Electronically signed: Roque Alvarado MD
[2017-07-17] MEDS ORDERED: NACL 0.9% 1000 ML 1,000 ML IV SCH (13:00)
--- NOTE | 2017-07-17 13:02 | Post Anesthesia Evaluation ---
- Post Anesthesia Evaluation Patient Participated: Yes Airway Patent: Yes Stable Respiratory Function: Yes Nausea/Vomiting: No Temp > 96.8F: Yes Pain Manageable: Yes Adequeate Hydration: Yes Anesthesia Complications: No Block Receding Appropriately: Not Applicable Patient on Ventilator: No
[2017-07-18] MEDS: D5NS 1,000 ML IV SCH (02:11)
[2017-07-18 06:43] LABS: Hematocrit 31.9 % (30.3-42.9); Hemoglobin 10.8 gm/dl (10.1-14.3); Mean Corpuscular HGB Conc 34 % (30-34); Mean Corpuscular Hemoglobin 30 pg (28-32); Mean Corpuscular Volume 88 fl (79-97); Platelet Count 230 K/mm3 (140-440); Red Blood Count 3.62 M/mm3 (3.65-5.03); Red Cell Distribution Width 14.7 % (13.2-15.2); White Blood Count 6.1 K/mm3 (4.5-11.0)
[2017-07-18 06:52] LABS: Anion Gap 14 mmol/L; BUN/Creatinine Ratio 9; Blood Urea Nitrogen 7 mg/dL (7-17); Carbon Dioxide 25 mmol/L (22-30); Chloride 107.1 mmol/L (98-107); Glucose 93 mg/dL (65-100); Potassium 3.7 mmol/L (3.6-5.0); Sodium 142 mmol/L (137-145)
[2017-07-18] MEDS: ZOFRAN IV PRN ×3 (07:41→16:26)
[2017-07-18] MEDS: MORPHINE IV PRN ×3 (07:45→16:26)
[2017-07-18 08:08] LABS: Basophils % (Manual) 0 % (0.0-1.8); Blastocytes % (Manual) 0 %
[2017-07-18 08:09] LABS: Diff Status Complete; RBC Morphology Normal
[2017-07-18 08:59] LABS: Creatine Kinase MB 1.3 ng/mL (0.0-4.0)
--- NOTE | 2017-07-18 11:02 | Discharge Summary ---
Providers - Providers Date of Admission: 07/17/17 05:12 Attending physician: RIVER MORALES MD 07/17/17 08:26 Consult to Physician [CONS] Routine Consulting Provider: GABI MARTE Reason For Exam: [facility] Place consult to:: yes/DR. PITT Notified:: OFFICE Phone number called:: yes/[phone] Was contact made?: Yes If yes, spoke with:: JACQUELIN Time called:: 09:26 Comment:: GABRIELLE NOTIFIED Primary care physician: NIP WRAPPER Hospitalization Reason for admission: upper GI bleed, chest pain Condition: Stable Pertinent studies: EGD gastritis Procedures: Cardiac stress test negative for ischemia. Hospital course: Patient is a 32 years old black female with no significant past medical history who presented to the hospital complaining of some abdominal pain, chest discomfort, nausea, vomiting, and by mouth intolerance. She also complained hematemesis. Patient admitted to the floor and was was treated for gastritis and chest pain. EGD was done and showed gastritis, no ulcer, no active GI bleeding. Cardiac enzymes were negative, EKG normal sinus rhythm, stress test was negative for acute PR. Patient was counseled about cessation of smoking. Patient's chest pain abdominal pain, nausea and vomiting subsided. Patient is hemodynamically stable at the time of discharge. She was discharged with pantoprazole, Reglan and pain medications. Advised to have follow-up with primary care physician. Disposition: TO HOME OR SELFCARE Time spent for discharge: 31 minutes - Discharge Diagnoses (1) First degree AV block Status: Acute (2) Hematemesis Status: Acute Qualifiers: Nausea presence: N (3) Chest pain Status: Acute Qualifiers: Chest pain type: unspecified Ischemic chest pain type: I Qualified Code(s ): R07.9 - Chest pain, unspecified Core Measure Documentation - Palliative Care Palliative Care/ Comfort Measures: Not Applicable - Core Measures Any of the following diagnoses?: none Exam - Physical Exam Narrative exam: Not in cardiopulmonary distress. The patient appeared well nourished and normally developed. Vital signs as documented. Head exam is unremarkable. No scleral icterus . Neck is without jugular venous distension, thyromegaly, or carotid bruits. Lungs are clear to auscultation. Cardiac exam reveals regular rate and Rhythm. First and second heart sounds normal. No murmurs, rubs or gallops. Abdominal exam reveals normal bowel sounds, no masses, no organomegaly and no aortic enlargement. Extremities are nonedematous and both femoral and pedal pulses are normal. PROFESSOR SCULPTURE: Alert and oriented 3. No focal weakness. - Constitutional Vitals: Temp Pulse Resp BP Pulse Ox 98.7 F 64 22 116/71 98 07/17/17 22:48 07/17/17 22:48 07/18/17 07:45 07/17/17 22:48 07/17/17 22:48 Plan Activity: no restrictions Diet: low cholesterol Follow up with: PRIMARY CARE, [Primary Care Provider] - 7 Days Prescriptions: HYDROcodone/APAP 5-325 [[place] 5-325 mg TAB] 1 each PO Q6HR PRN #10 tablet PRN Reason: Pain Metoclopramide [Reglan TAB] 10 mg PO TID PRN #10 tab PRN Reason: Nausea Pantoprazole [Protonix TAB] 40 mg PO QAM #30 tablet
[2017-07-18] MEDS ORDERED: LEXISCAN IV ONE ×2 (11:28→11:30)
[2017-07-18] MEDS ORDERED: PNEUMOVAX 23 IM ONE (12:00)
[2017-07-18] MEDS ORDERED: Fluarix Quad 2017-2018(36 MOS+) IM ONE (12:00)
[2017-07-18] MEDS ORDERED: ZOFRAN ONE (12:16)
[2017-07-18] MEDS ORDERED: ZOFRAN IV ONE (12:20)
[2017-07-18] MEDS ORDERED: MORPHINE ONE (12:28)
[2017-07-18] MEDS: PROTONIX IV SCH (14:36)
[2017-07-18] MEDS ORDERED: PHENERGAN PR PRN (14:49)
[2017-07-18 17:27] VITALS: BP 154/98
[2017-07-19] MEDS ORDERED: PROTONIX PO SCH (10:00)
--- NOTE | 2017-07-19 10:17 | Treadmill Report ---
NUCLEAR PERFUSION STUDY READING PHYSICIAN: Geovany Villar M.D. REASON FOR STUDY: Chest pain. IMAGING PROTOCOL: The patient received 10 mCi of Technetium 99m Tetrofosmin for resting image and 28 mCi of Technetium 99m Tetrofosmin for stress imaging. The imaging for the whole procedure was completed 30-90 minutes following the initial injection of Technetium 99m Tetrofosmin. The SPECT imaging in the 180 degree arc was performed in the right anterior oblique projection. Computerized reconstruction of the images was performed for analysis. IMAGING RESULTS: Normal cavity size from stress to rest. Normal distribution of radionuclide in the anterior, inferior, septal, and apical regions. Gated SPECT, EF greater than 65% with no wall motion abnormality. The patient infused Lexiscan with no EKG changes. SUMMARY: 1. Negative Lexiscan EKG. 2. Normal rest and stress myocardial perfusion scan. No significant stress ischemia. No wall motion abnormality. Gated SPECT, EF greater than 65%. JOB# [id number] DEMI/CLAIR
== END 2017-07-18 19:05 | disposition home or self-care (01) | DRG 379 ==
LOC: ED 01:01 → 3A 05:12
PROVIDERS: ADMIT Internal Medicine; ATTEND Internal Medicine
PROC: 0DJ08ZZ Inspection of Upper Intestinal Tract, Via Natural or Artificial Opening Endoscopic (ICD-10-PCS; 2017-07-17)
PROC: 3E0234Z Introduction of Serum, Toxoid and Vaccine into Muscle, Percutaneous Approach (ICD-10-PCS; principal; 2017-07-18)
DX: K29.61 Other gastritis with bleeding (principal); I44.0 Atrioventricular block, first degree; K92.0 Hematemesis; R07.89 Other chest pain; K44.9 Diaphragmatic hernia without obstruction or gangrene; Z23 Encounter for immunization
CPT/HCPCS: 36415; 78452; 80048; 82550; 82553; 84484; 85007; 85025; 90686; 90732; 93005; 93010; 93017; 96361; 96374; 96375; A9502; C9113; J2270; J2405; J2704; J2785; J7030; J7042

== ENCOUNTER 2017-10-10 16:29 | Emergency (ER) | payer OTHER ==
[2017-10-10 16:46] VITALS: BP 131/75
--- NOTE | 2017-10-10 18:03 | Emergency Department Report ---
Chief Complaint: Chest Pain Stated Complaint: CHEST PAIN Time Seen by Provider: 10/10/17 17:50 - HPI History of Present Illness: This is this is 32-year-old female well-nourished well-developed in no acute distress. Patient reports that she is having chest pain to left chest area that feels like pressure. She says she is being seen here at this hospital for similar incident and was admitted for 2 days and discharged home with hydrocodone and Reglan and Pepcid. She says she had a stress test and echo tests in July and they were both negative. Denies any nausea or vomiting. Denies any shortness of breath. Denies any history of blood clots in her family or personally. Denies any clotting disorder. Denies any control pills Several episode of vomting then cp. Abdominal cramps. 05/25. No urinary burning frequency or urgency. Denies back pain. - ROS Review of Systems: all stystems are negative unless astated in hpi above - Exam Vital Signs: Vital Signs 10/10/17 16:43 Temperature 98.9 F Pulse Rate 101 H Respiratory 20 Rate Blood Pressure 131/75 O2 Sat by Pulse 99 Oximetry Physical Exam: Gen.: This is a 32-year-old female well-nourished well-developed and nontoxic in appearance. CV: Tachycardic to 101, regular rhythm, S1 and S2 and no murmur Abdomen: NonTender to palpate. No guarding or rebound tenderness. Positive bowel sounds in all quadrants. MSE screening note: Focused history and physical exam performed. Due to findings the following was ordered: ED Medical Decision Making - Medical Decision Making MDM: Patient screened by provider in triage area. Appropriate protocol initiated and patient to be seen in main ED by ED Disposition for MSE Condition: Stable
[2017-10-10 18:59] LABS: Basophils % (Auto) 0.2 % (0.0-1.8); Hematocrit 41.8 % (30.3-42.9); Hemoglobin 13.5 gm/dl (10.1-14.3); Mean Corpuscular HGB Conc 32 % (30-34); Mean Corpuscular Hemoglobin 30 pg (28-32); Mean Corpuscular Volume 92 fl (79-97); Platelet Count 340 K/mm3 (140-440); Red Blood Count 4.54 M/mm3 (3.65-5.03); Red Cell Distribution Width 14.1 % (13.2-15.2); White Blood Count 8.8 K/mm3 (4.5-11.0)
[2017-10-10 19:16] LABS: BUN/Creatinine Ratio 17; Blood Urea Nitrogen 12 mg/dL (7-17); Calcium 9.9 mg/dL (8.4-10.2); Carbon Dioxide 22 mmol/L (22-30); Chloride 100.1 mmol/L (98-107); Glucose 111 mg/dL (65-100); Lipase 18 units/L (13-60); Sodium 141 mmol/L (137-145)
[2017-10-10 19:25] LABS: Anion Gap 24 mmol/L; Potassium 4.6 mmol/L (3.6-5.0)
== END 2017-10-10 21:05 | disposition left against medical advice (07) ==
LOC: ED 16:29
DX: R07.9 Chest pain, unspecified (principal); Z53.21 Procedure and treatment not carried out due to patient leaving prior to being seen by health care provider
CPT/HCPCS: 36415; 80048; 83690; 84484; 84703; 85025; 93005; 93010

== ENCOUNTER 2017-12-12 23:34 | Emergency (ER) | payer SELFPAY ==
[2017-12-13 00:15] VITALS: BP 142/94
[2017-12-13] MEDS ORDERED: ASPIRIN PO ONE (00:15)
[2017-12-13] MEDS ORDERED: ZOFRAN ODT PO ONE (00:30)
[2017-12-13] MEDS ORDERED: ZOFRAN ODT ONE (00:37)
[2017-12-13 01:03] LABS: Basophils % (Auto) 0.2 % (0.0-1.8); Eosinophils % (Auto) 0.1 % (0.0-4.3); Hematocrit 39.1 % (30.3-42.9); Hemoglobin 13.3 gm/dl (10.1-14.3); Lymphocytes # (Auto) 1.2 K/mm3 (1.2-5.4); Lymphocytes % (Auto) 13.8 % (13.4-35.0); Mean Corpuscular HGB Conc 34 % (30-34); Mean Corpuscular Hemoglobin 30 pg (28-32); Mean Corpuscular Volume 87 fl (79-97); Monocytes # (Auto) 0.3 K/mm3 (0.0-0.8); Monocytes % (Auto) 3.4 % (0.0-7.3); Platelet Count 365 K/mm3 (140-440); Red Blood Count 4.48 M/mm3 (3.65-5.03); Red Cell Distribution Width 14.5 % (13.2-15.2)
[2017-12-13 01:13] LABS: BUN/Creatinine Ratio 20; Blood Urea Nitrogen 14 mg/dL (7-17); Calcium 9.3 mg/dL (8.4-10.2); Hemolysis Index 0
== END 2017-12-13 00:22 | disposition left against medical advice (07) ==
LOC: ED 23:34
DX: R07.9 Chest pain, unspecified (principal); Z53.21 Procedure and treatment not carried out due to patient leaving prior to being seen by health care provider
CPT/HCPCS: 36415; 80048; 84484; 85025; 93005; 93010; Q0162

== ENCOUNTER 2018-02-14 16:10 | Emergency (ER) | payer SELFPAY ==
[2018-02-14 16:24] VITALS: BP 158/98
[2018-02-14] MEDS ORDERED: ZOFRAN ODT ONE (17:22)
[2018-02-14] MEDS ORDERED: ZOFRAN ODT PO ONE (17:27)
== END 2018-02-14 21:40 | disposition left against medical advice (07) ==
LOC: ED 16:10
DX: R10.9 Unspecified abdominal pain (principal); R07.9 Chest pain, unspecified; Z53.21 Procedure and treatment not carried out due to patient leaving prior to being seen by health care provider
CPT/HCPCS: 93005; 93010; Q0162

== ENCOUNTER 2019-04-10 16:36 | Emergency (ER) | payer SELFPAY ==
[2019-04-10] MEDS ORDERED: SUBLIMAZE IV ONE ×2 (17:10→18:57)
[2019-04-10] MEDS ORDERED: NACL 0.9% 1000 ML 1,000 ML IV ONE (17:10)
[2019-04-10] MEDS ORDERED: ZOFRAN IV ONE (17:10)
--- NOTE | 2019-04-10 17:15 | Emergency Department Report ---
HPI - General Chief Complaint: Abdominal Pain Time Seen by Provider: 04/10/19 16:59 - HPI HPI: Room 1 The patient is 34-year-old female presenting with chief complaint of abdominal pain. The patient states for the past 6 days she has had a constant pain in the periumbilical left lower quadrant described as aching in nature. The patient states she also developed vaginal bleeding health approximately 3-to 4 pads per day. Patient admits to fever at home at 101F. Patient admits to nausea and vomiting since she had one episode of diarrhea when her symptoms began. The patient currently describes her abdominal pain score of 10/10. Patient denies dysuria or vaginal discharge Location: [See above] Duration: [See above] Quality: [See above] Severity: [See above] Modifying factors: [see above] Context: [see above] Mode of transportation: [not driving] ED Past Medical Hx - Past Medical History Previous Medical History?: Yes Hx GERD: Yes Additional medical history: hiatal hernia, first degree AV block (states possible) - Surgical History Hx Appendectomy: Yes Additional Surgical History: Back surgery, 1997 - Family History Family history: no significant - Social History Smoking Status: Never Smoker Substance Use Type: Marijuana - Medications Home Medications: Home Medications Medication Instructions Recorded Confirmed Last Taken Type Ciprofloxacin HCl [Ciprofloxacin 500 mg PO Q12HR #14 tab 04/11/19 Unknown Rx TAB] HYDROcodone/APAP 5-325 [[place] 1 - 2 each PO Q6HR PRN #14 tablet 04/11/19 Unknown Rx 5/325] Ibuprofen [Motrin 800 MG tab] 800 mg PO Q8HR PRN #20 tablet 04/11/19 Unknown Rx ED Review of Systems ROS: Stated complaint: ABD PAIN Other details as noted in HPI Constitutional: fever (101F) Eyes: denies: eye pain ENT: denies: throat pain Respiratory: no symptoms reported Cardiovascular: denies: chest pain Endocrine: no symptoms reported Gastrointestinal: abdominal pain, nausea, vomiting, diarrhea Genitourinary: abnormal menses. denies: dysuria, discharge Musculoskeletal: denies: back pain Neurological: denies: headache Physical Exam - Physical Exam Vital Signs: Vital Signs 04/10/19 16:53 Temperature 98.2 F Pulse Rate 66 Respiratory 16 Rate Blood Pressure 122/77 [Right] O2 Sat by Pulse 100 Oximetry Physical Exam: GENERAL: The patient is well-developed well-nourished female lying on stretcher appearing to be in mild discomfort HEENT: Normocephalic. Atraumatic. Extraocular motions are intact. Patient has moist mucous membranes. NECK: Supple. Trachea midline CHEST/LUNGS: Clear to auscultation. There is no respiratory distress noted. HEART/CARDIOVASCULAR: Regular. There is no tachycardia. There is no gallop rub or murmur. ABDOMEN: Abdomen is soft, tenderness to palpation in the left lower quadrant. No guarding. Patient has normal bowel sounds. There is no abdominal distention. SKIN: There is no rash. There is no edema. There is no diaphoresis. NEURO: The patient is awake, alert, and oriented. The patient is cooperative. The patient has normal speech MUSCULOSKELETAL:There is no evidence of acute injury. ED Course Vital Signs 04/10/19 16:53 Temperature 98.2 F Pulse Rate 66 Respiratory 16 Rate Blood Pressure 122/77 [Right] O2 Sat by Pulse 100 Oximetry ED Medical Decision Making - Lab Data Result diagrams: 04/10/19 17:18 04/10/19 17:18 Laboratory Tests 04/10/19 04/10/19 04/10/19 17:18 17:18 17:18 WBC 6.6 RBC 4.36 Hgb 13.4 Hct 40.1 MCV 92 MCH 31 MCHC 33 RDW 14.6 Plt Count 323 Lymph % (Auto) 40.1 H [place] % (Auto) 12.9 H Eos % (Auto) 0.1 Baso % (Auto) 0.4 Lymph # 2.6 [place] # 0.8 Eos # 0.0 Baso # 0.0 Seg Neutrophils % 46.5 Seg Neutrophils # 3.0 Sodium 140 Potassium 3.6 Chloride 96.8 L Carbon Dioxide 29 Anion Gap 18 BUN 16 Creatinine 0.8 Estimated GFR > 60 BUN/Creatinine Ratio 20 Glucose 119 H Calcium 10.7 H Total Bilirubin 0.40 AST 15 ALT 17 Alkaline Phosphatase 50 Total Protein 7.5 Albumin 4.6 Albumin/Globulin Ratio 1.6 HCG, Quant < 2 Urine Color Urine Turbidity Urine pH Ur Specific [place] Urine Protein Urine Glucose (UA) Urine Ketones Urine Blood Urine Nitrite Urine Bilirubin Urine Urobilinogen Ur Leukocyte Esterase Urine WBC (Auto) Urine RBC (Auto) U Epithel Cells (Auto) Urine Bacteria (Auto) Amorphous Crystals Urine Mucus 04/10/19 19:59 WBC RBC Hgb Hct MCV MCH MCHC RDW Plt Count Lymph % (Auto) [place] % (Auto) Eos % (Auto) Baso % (Auto) Lymph # [place] # Eos # Baso # Seg Neutrophils % Seg Neutrophils # Sodium Potassium Chloride Carbon Dioxide Anion Gap BUN Creatinine Estimated GFR BUN/Creatinine Ratio Glucose Calcium Total Bilirubin AST ALT Alkaline Phosphatase Total Protein Albumin Albumin/Globulin Ratio HCG, Quant Urine Color Eun Urine Turbidity Turbid Urine pH 7.0 Ur Specific [place] 1.024 Urine Protein 30 mg/dl Urine Glucose (UA) Neg Urine Ketones Tr Urine Blood Sm Urine Nitrite Neg Urine Bilirubin Neg Urine Urobilinogen 2.0 Ur Leukocyte Esterase Tr Urine WBC (Auto) 14.0 H Urine RBC (Auto) 10.0 U Epithel Cells (Auto) 9.0 Urine Bacteria (Auto) 2+ Amorphous Crystals 2+ Urine Mucus Few - Radiology Data Radiology results: report reviewed (pelvic ultrasound), image reviewed (pelvic ultrasound) [facility] [address] [place] [address] Ultrasound Report Signed Patient: ADEN BAR MR#: [id number] : 1985 Acct:[id number] Age/Sex: 34 / F ADM Date: 04/10/19 Loc: ED Attending Dr: Ordering Physician: KIMO OTERO MD Date of Service: 04/10/19 Procedure(s): US transvaginal Accession Number(s): [id number] cc: KIMO OTERO MD PROCEDURE: US TRANSVAGINAL TECHNIQUE: Real-time sonography was transabdominally and transvaginally and images are submitted for interpretation HISTORY: abnormal vaginal bleeding, left pelvic pain COMPARISONS: None FINDINGS: There is a posterior myometrial fibroid measuring 4.6 x 2.2 x 3.8 cm. The uterus measures 8.8 x 4.9 x 6.1 cm. Endometrium appears normal measuring 1.2 cm in thickness. The right ovary appears normal measuring 2.8 x 1.7 x 2.1 cm. The left ovary appears normal measuring 2.9 x 2.0 x 2.4 cm. There is a prominent follicle in the left ovary. Color Doppler sonography shows ovarian flow bilaterally. There is no free pelvic fluid. IMPRESSION: 1. 4.6 cm posterior myometrial fibroid 2. Otherwise, normal pelvic ultrasound This document is electronically signed by Ebony Dey MD., April 11 2019 01:33:13 AM ET Transcribed By: ML Dictated By: EBONY DEY MD Electronically Authenticated By: EBONY DEY MD Signed Date/Time: 04/11/19 0135 DD/ TD/TT: 04/10/19 0040 - Differential Diagnosis ectopic , diverticulitis, cystitis, pyelonephritis, ovarian cyst Critical care attestation.: If time is entered above; I have spent that time in minutes in the direct care of this critically ill patient, excluding procedure time. ED Disposition Clinical Impression: UTI (urinary tract infection), Uterine fibroid, Acute abdominal pain Disposition: TO HOME OR SELFCARE Is pt being admited?: No Does the pt Need Aspirin: No Condition: Stable Instructions: Abdominal Pain (ED) Additional Instructions: Return to the emergency department immediately should you develop worsening symptoms, fever, inability to tolerate food or liquid or any other concerns. Prescriptions: Ciprofloxacin HCl [Ciprofloxacin TAB] 500 mg PO Q12HR #14 tab Ibuprofen [Motrin 800 MG tab] 800 mg PO Q8HR PRN #20 tablet PRN Reason: Pain , Severe (7-10) HYDROcodone/APAP 5-325 [[place] 5/325] 1 - 2 each PO Q6HR PRN #14 tablet PRN Reason: Pain Referrals: OMER RONQUILLO MD [Primary Care Provider] - 3-5 Days [facility] [Provider Group] - 3-5 Days Time of Disposition: 01:43
[2019-04-10 18:26] LABS: Basophils % (Auto) 0.4 % (0.0-1.8); Eosinophils % (Auto) 0.1 % (0.0-4.3); Hematocrit 40.1 % (30.3-42.9); Hemoglobin 13.4 gm/dl (10.1-14.3); Lymphocytes # (Auto) 2.6 K/mm3 (1.2-5.4); Lymphocytes % (Auto) 40.1 % (13.4-35.0); Mean Corpuscular HGB Conc 33 % (30-34); Mean Corpuscular Volume 92 fl (79-97); Monocytes # (Auto) 0.8 K/mm3 (0.0-0.8); Monocytes % (Auto) 12.9 % (0.0-7.3); Platelet Count 323 K/mm3 (140-440); Red Blood Count 4.36 M/mm3 (3.65-5.03); Red Cell Distribution Width 14.6 % (13.2-15.2)
[2019-04-10 18:40] LABS: Alanine Aminotransferase 17 units/L (7-56); Albumin 4.6 g/dL (3.9-5); BUN/Creatinine Ratio 20; Blood Urea Nitrogen 16 mg/dL (7-17); Calcium 10.7 mg/dL (8.4-10.2); Hemolysis Index 3
[2019-04-10] MEDS ORDERED: MORPHINE IV ONE (19:46)
[2019-04-10] MEDS ORDERED: MORPHINE ONE (19:48)
[2019-04-10 20:28] LABS: Amorphous Crystals,Urine 2+; Bacteria,Urine 2+ /HPF (Negative); Bilirubin,Urine NEG (Negative); Blood,Urine SM (Negative); Color,Urine Amber (Yellow); Mucus,Urine FEW /HPF
[2019-04-10 23:22] VITALS: BP 126/85
[2019-04-11] MEDS ORDERED: REGLAN ONE (01:07)
[2019-04-11] MEDS ORDERED: REGLAN IM ONE (01:35)
--- NOTE | 2019-04-11 01:35 | Ultrasound Report ---
PROCEDURE: US PELVIS DUPLEX DOPPLER COMP TECHNIQUE: Real-time sonography was transabdominally and transvaginally and images are submitted for interpretation HISTORY: abnormal vaginal bleeding, left pelvic pain COMPARISONS: None FINDINGS: There is a posterior myometrial fibroid measuring 4.6 x 2.2 x 3.8 cm. The uterus measures 8 .8 x 4.9 x 6.1 cm. Endometrium appears normal measuring 1.2 cm in thickness. The right ovary appears normal measuring 2.8 x 1.7 x 2.1 cm. The left ovary appears normal measuring 2.9 x 2.0 x 2.4 cm. There is a prominent follicle in the left ovary. Color Doppler sonography shows ovarian flow bilaterally. There is no free pelvic fluid. IMPRESSION: 1. 4.6 cm posterior myometrial fibroid 2. Otherwise, normal pelvic ultrasound This document is electronically signed by Alessandra Dey MD., April 11 2019 01:33:47 AM ET
== END 2019-04-11 01:47 | disposition home or self-care (01) ==
LOC: ED 16:36
DX: D25.9 Leiomyoma of uterus, unspecified (principal); N39.0 Urinary tract infection, site not specified; K21.9 Gastro-esophageal reflux disease without esophagitis; F12.10 Cannabis abuse, uncomplicated; Z90.89 Acquired absence of other organs; Z98.890 Other specified postprocedural states; Z88.0 Allergy status to penicillin
CPT/HCPCS: 36415; 76830; 80053; 81001; 84702; 85025; 87086; 93975; J2270; J2405; J2765; J3010; J7030; 96361; 96372; 96374; 96375

== ENCOUNTER 2021-07-19 12:17 | Emergency (ER) | payer SELFPAY ==
[2021-07-19 12:22] VITALS: BP 144/87
[2021-07-19] MEDS ORDERED: METOCLOPRAMIDE 10 MG/2 ML INJ IV ONE (12:31)
[2021-07-19] MEDS ORDERED: diphenhydrAMINE 50 MG/ML VIAL IV ONE (12:31)
[2021-07-19] MEDS ORDERED: DICYCLOMINE 20 MG TAB PO ONE (12:31)
[2021-07-19] MEDS ORDERED: FAMOTIDINE 20 MG/2 ML INJ IV ONE (12:31)
[2021-07-19] MEDS ORDERED: SODIUM CHLORIDE 0.9% 1000 ML 1,000 ML IV ONE (12:31)
[2021-07-19 14:07] LABS: Alanine Aminotransferase 13 units/L (7-56); Blood Urea Nitrogen 13 mg/dL (7-17); Calcium 10.8 mg/dL (8.4-10.2); Hemolysis Index 0
[2021-07-19 14:14] LABS: Bacteria,Urine 1+ /HPF (Negative); Bilirubin,Urine NEG (Negative); Blood,Urine SM (Negative); Color,Urine Yellow (Yellow); Mucus,Urine 3+ /HPF; Renal Epithelial Cells,Urine <1 /LPF; Urobilinogen,Urine < 2.0 mg/dL (<2.0)
[2021-07-19 14:21] LABS: Protein,Urine >500 mg/dL (Negative)
[2021-07-19 14:29] LABS: BUN/Creatinine Ratio 19
[2021-07-19 14:47] LABS: Monocytes # (Auto) 0.7 K/mm3 (0.0-0.8); Monocytes % (Auto) 9.6 % (0.0-7.3)
[2021-07-19 15:06] LABS: Hematocrit 34.2 % (30.3-42.9); Mean Corpuscular HGB Conc 32 % (30-34); Mean Corpuscular Volume 75 fl (79-97); Platelet Count 419 K/mm3 (140-440); Red Blood Count 4.53 M/mm3 (3.65-5.03)
[2021-07-19 15:07] LABS: Basophils % (Auto) 0.3 % (0.0-1.8); Lymphocytes # (Auto) 1.9 K/mm3 (1.2-5.4); Lymphocytes % (Auto) 26.6 % (13.4-35.0)
--- NOTE | 2021-07-19 16:05 | Ultrasound Report ---
ULTRASOUND ABDOMEN, COMPLETE INDICATION: abd pain with n/v. COMPARISON: Prior CT on 07/16/2017. FINDINGS: Pancreas: No significant abnormality. Abdominal Aorta: No significant abnormality. IVC: No significant abnormality. Liver: No significant abnormality. Normal hepatopedal blood flow in the main portal vein. Gallbladder: No significant abnormality. Bile ducts: No significant abnormality. Common bile duct measures 3.4 mm. Right kidney: 10.4 cm in length. No significant abnormality. Left kidney: 11 cm in length. No significant abnormality. Spleen: No significant abnormality. Free fluid: None. Additional Findings: None. IMPRESSION: 1. No sonographic abnormality of the abdomen. Signer Name: Nimesh Muñoz MD Signed: 07/19/2021 4:01 PM Workstation Name: [id number]
--- NOTE | 2021-07-19 16:16 | Emergency Department Report ---
ED Abdominal Pain HPI - General Chief Complaint: Nausea/Vomiting/Diarrhea Stated Complaint: VOMITING Time Seen by Provider: 07/19/21 12:27 Source: patient Mode of arrival: Wheelchair Limitations: No Limitations - History of Present Illness Initial Comments: This is a 36-year-old female nontoxic, well nourished in appearance, no acute signs of distress presents to the ED with c/o of nausea and vomiting several days. Patient stated has some epigastric pain. Patient describes vomiting as food content and yellow gastric acid. Patient describes epigastric pain as cramping intermittently with level of 3/10. Patient denies chest pain, short of breath, fever, hemoptysis, blood in stool, chills, headache, stiff neck, numbness or tingling. Patient denies any diarrhea or constipation. Denies any blood in stool. Patient denies any recent travels. Patient stated allergies to PCN. -: days(s) Location: epigastric Radiation: none Migration to: no migration Severity: mild Severity scale (0 -10): 3 Quality: cramping Consistency: intermittent Improves With: nothing Worsens With: nothing Associated Symptoms: nausea, vomiting. denies: diarrhea, fever, chills, constipation, dysuria, hematemesis, hematochezia, melena, hematuria, anorexia, syncope - Related Data Previous Rx's Medication Instructions Recorded Last Taken Type Ciprofloxacin HCl [Ciprofloxacin 500 mg PO Q12HR #14 tab 04/11/19 Unknown Rx TAB] HYDROcodone/APAP 5-325 [[place] 1 - 2 each PO Q6HR PRN #14 tablet 04/11/19 Unknown Rx 5/325] Ibuprofen [Motrin 800 MG tab] 800 mg PO Q8HR PRN #20 tablet 04/11/19 Unknown Rx Metoclopramide [Reglan] 10 mg PO BID PRN #12 tab 07/19/21 Unknown Rx Sulfamethoxazole/Trimethoprim 1 each PO BID #14 tablet 07/19/21 Unknown Rx [Bactrim DS TAB] Allergies Allergy/AdvReac Type Severity Reaction Status Date / Time Penicillins Allergy Swelling Verified 07/19/21 12:19 ED Review of Systems ROS: Stated complaint: VOMITING Other details as noted in HPI Comment: All other systems reviewed and negative Constitutional: denies: chills, fever Eyes: denies: eye pain, eye discharge, vision change ENT: denies: ear pain, throat pain Respiratory: denies: cough, shortness of breath, wheezing Cardiovascular: denies: chest pain, palpitations Endocrine: no symptoms reported Gastrointestinal: abdominal pain, nausea, vomiting. denies: diarrhea, constipation, hematemesis, melena, hematochezia Genitourinary: denies: urgency, dysuria, discharge Musculoskeletal: denies: back pain, joint swelling, arthralgia Skin: denies: rash, lesions Neurological: denies: headache, weakness, paresthesias Psychiatric: denies: anxiety, depression Hematological/Lymphatic: denies: easy bleeding, easy bruising ED Past Medical Hx - Past Medical History Hx GERD: Yes Additional medical history: hiatal hernia, first degree AV block (states possible) - Surgical History Hx Appendectomy: Yes Additional Surgical History: Back surgery, 1997 - Social History Smoking Status: Never Smoker Substance Use Type: Marijuana - Medications Home Medications: Home Medications Medication Instructions Recorded Confirmed Last Taken Type Ciprofloxacin HCl [Ciprofloxacin 500 mg PO Q12HR #14 tab 04/11/19 Unknown Rx TAB] HYDROcodone/APAP 5-325 [[place] 1 - 2 each PO Q6HR PRN #14 tablet 04/11/19 Unknown Rx 5/325] Ibuprofen [Motrin 800 MG tab] 800 mg PO Q8HR PRN #20 tablet 04/11/19 Unknown Rx Metoclopramide [Reglan] 10 mg PO BID PRN #12 tab 07/19/21 Unknown Rx Sulfamethoxazole/Trimethoprim 1 each PO BID #14 tablet 07/19/21 Unknown Rx [Bactrim DS TAB] ED Physical Exam - General Limitations: No Limitations General appearance: alert, in no apparent distress - Head Head exam: Present: atraumatic, normocephalic - Eye Eye exam: Present: normal appearance - Neck Neck exam: Present: normal inspection, full ROM. Absent: lymphadenopathy - Respiratory Respiratory exam: Present: normal lung sounds bilaterally. Absent: respiratory distress, wheezes, rales, rhonchi, stridor, chest wall tenderness, accessory muscle use, decreased breath sounds, prolonged expiratory - Cardiovascular Cardiovascular Exam: Present: regular rate, normal rhythm, normal heart sounds. Absent: bradycardia, tachycardia, irregular rhythm, systolic murmur, diastolic murmur, rubs, gallop - GI/Abdominal GI/Abdominal exam: Present: soft, normal bowel sounds. Absent: distended, tenderness, guarding, rebound, rigid, diminished bowel sounds - Extremities Exam Extremities exam: Present: normal inspection, full ROM - Back Exam Back exam: Present: normal inspection, full ROM. Absent: tenderness, CVA tenderness (R), CVA tenderness (L), muscle spasm, paraspinal tenderness, vertebral tenderness, rash noted - Neurological Exam Neurological exam: Present: alert, oriented X3, normal gait - Psychiatric Psychiatric exam: Present: normal affect, normal mood - Skin Skin exam: Present: warm, dry, intact, normal color. Absent: rash ED Course Vital Signs 07/19/21 12:21 Temperature 98.9 F Pulse Rate 71 Respiratory 16 Rate Blood Pressure 144/87 O2 Sat by Pulse 100 Oximetry - Reevaluation(s) Reevaluation #1: 07/19/21 16:14 Patient is speaking in full sentences with no signs of distress noted. ED Medical Decision Making - Lab Data Result diagrams: 07/19/21 13:02 07/19/21 13:02 Lab Results 07/19/21 07/19/21 07/19/21 Range/Units 13:02 13:02 13:02 WBC 7.3 (4.5-11.0) K/mm3 RBC 4.53 (3.65-5.03) M/mm3 Hgb 11.0 (10.1-14.3) gm/dl Hct 34.2 (30.3-42.9) % MCV 75 L (79-97) fl MCH 24 L (28-32) pg MCHC 32 (30-34) % RDW 18.0 H (13.2-15.2) % Plt Count 419 (140-440) K/mm3 Lymph % (Auto) 26.6 (13.4-35.0) % [place] % (Auto) 9.6 H (0.0-7.3) % Eos % (Auto) 0.0 (0.0-4.3) % Baso % (Auto) 0.3 (0.0-1.8) % Lymph # (Auto) 1.9 (1.2-5.4) K/mm3 [place] # (Auto) 0.7 (0.0-0.8) K/mm3 Eos # (Auto) 0.0 (0.0-0.4) K/mm3 Baso # (Auto) 0.0 (0.0-0.1) K/mm3 Seg Neutrophils % 63.5 (40.0-70.0) % Seg Neutrophils # 4.6 (1.8-7.7) K/mm3 Sodium 143 (137-145) mmol/L Potassium 4.0 (3.6-5.0) mmol/L Chloride 98.9 (98-107) mmol/L Carbon Dioxide 25 (22-30) mmol/L Anion Gap 23 mmol/L BUN 13 (7-17) mg/dL Creatinine 0.7 (0.6-1.2) mg/dL Estimated GFR > 60 ml/min BUN/Creatinine Ratio 19 % Glucose 113 H (65-100) mg/dL Calcium 10.8 H (8.4-10.2) mg/dL Total Bilirubin 0.40 (0.1-1.2) mg/dL AST 17 (5-40) units/L ALT 13 (7-56) units/L Alkaline Phosphatase 61 (35-129) units/L Total Protein 9.1 H (6.3-8.2) g/dL Albumin 5.0 (3.9-5) g/dL Albumin/Globulin Ratio 1.2 % Lipase 35 (13-60) units/L HCG, Qual Negative (Negative) Urine Color (Yellow) Urine Turbidity (Clear) Urine pH (5.0-7.0) Ur Specific [employer] (1.003-1.030) Urine Protein (Negative) mg/dL Urine Glucose (UA) (Negative) mg/dL Urine Ketones (Negative) mg/dL Urine Blood (Negative) Urine Nitrite (Negative) Urine Bilirubin (Negative) Urine Urobilinogen (<2.0) mg/dL Ur Leukocyte Esterase (Negative) Urine WBC (Auto) (0.0-6.0) /HPF Urine RBC (Auto) (0.0-6.0) /HPF U Epithel Cells (Auto) (0-13.0) /HPF Urine Bacteria (Auto) (Negative) /HPF Ur Renal Epithelial Cell /LPF Urine Mucus /HPF 07/19/21 Range/Units 13:29 WBC (4.5-11.0) K/mm3 RBC (3.65-5.03) M/mm3 Hgb (10.1-14.3) gm/dl Hct (30.3-42.9) % MCV (79-97) fl MCH (28-32) pg MCHC (30-34) % RDW (13.2-15.2) % Plt Count (140-440) K/mm3 Lymph % (Auto) (13.4-35.0) % Bond % (Auto) (0.0-7.3) % Eos % (Auto) (0.0-4.3) % Baso % (Auto) (0.0-1.8) % Lymph # (Auto) (1.2-5.4) K/mm3 [place] # (Auto) (0.0-0.8) K/mm3 Eos # (Auto) (0.0-0.4) K/mm3 Baso # (Auto) (0.0-0.1) K/mm3 Seg Neutrophils % (40.0-70.0) % Seg Neutrophils # (1.8-7.7) K/mm3 Sodium (137-145) mmol/L Potassium (3.6-5.0) mmol/L Chloride (98-107) mmol/L Carbon Dioxide (22-30) mmol/L Anion Gap mmol/L BUN (7-17) mg/dL Creatinine (0.6-1.2) mg/dL Estimated GFR ml/min BUN/Creatinine Ratio % Glucose (65-100) mg/dL Calcium (8.4-10.2) mg/dL Total Bilirubin (0.1-1.2) mg/dL AST (5-40) units/L ALT (7-56) units/L Alkaline Phosphatase (35-129) units/L Total Protein (6.3-8.2) g/dL Albumin (3.9-5) g/dL Albumin/Globulin Ratio % Lipase (13-60) units/L HCG, Qual (Negative) Urine Color Yellow (Yellow) Urine Turbidity Slightly-cloudy (Clear) Urine pH 6.0 (5.0-7.0) Ur Specific [employer] 1.032 H (1.003-1.030) Urine Protein >500 (Negative) mg/dL Urine Glucose (UA) 50 (Negative) mg/dL Urine Ketones 80 (Negative) mg/dL Urine Blood Sm (Negative) Urine Nitrite Neg (Negative) Urine Bilirubin Neg (Negative) Urine Urobilinogen < 2.0 (<2.0) mg/dL Ur Leukocyte Esterase Neg (Negative) Urine WBC (Auto) 23.0 H (0.0-6.0) /HPF Urine RBC (Auto) 5.0 (0.0-6.0) /HPF U Epithel Cells (Auto) 16.0 H (0-13.0) /HPF Urine Bacteria (Auto) 1+ (Negative) /HPF Ur Renal Epithelial Cell <1 /LPF Urine Mucus 3+ /HPF - Radiology Data [facility] [address] [place] [address] Ultrasound Report Signed Patient: ADEN BAR MR#: [id number] : 1985 Acct:[id number] Age/Sex: 36 / F ADM Date: 07/19/21 Loc: ED Attending Dr: Ordering Physician: GERMAINE YANG NP Date of Service: 07/19/21 Procedure(s): US abdomen complete Accession Number(s): [id number] cc: GERMAINE YANG NP ULTRASOUND ABDOMEN, COMPLETE INDICATION: abd pain with n/v. COMPARISON: Prior CT on 07/16/2017. FINDINGS: Pancreas: No significant abnormality. Abdominal Aorta: No significant abnormality. IVC: No significant abnormality. Liver: No significant abnormality. Normal hepatopedal blood flow in the main portal vein. Gallbladder: No significant abnormality. Bile ducts: No significant abnormality. Common bile duct measures 3.4 mm. Right kidney: 10.4 cm in length. No significant abnormality. Left kidney: 11 cm in length. No significant abnormality. Spleen: No significant abnormality. Free fluid: None. Additional Findings: None. IMPRESSION: 1. No sonographic abnormality of the abdomen. Signer Name: Nimesh Muñoz MD Signed: 07/19/2021 4:01 PM Workstation Name: [id number] Transcribed By: RUSSELL Dictated By: Nimesh Muñoz MD Electronically Authenticated By: Nimesh Muñoz MD Signed Date/Time: 07/19/21 1601 DD/ 1600 TD/TT: - Medical Decision Making This is a 36-year-old female that presents with n/v. Patient is stable and was examined by me. There is no abdominal tenderness. Negative signs of symptoms of appendicitis. Labs obtained. UA obtained. US of abdomen obtained and dictated by the radiologist. Patient is notified of the report with no questions noted by the patient. Vital signs are stable prior to discharge. Patient received medical treatment in the ED which patient stated symptoms has resovled and subsided. Was instructed note to operate any machinery due to possible drowsiness and stated someone will drive the patient home. A by mouth challenge has been obtained and patient tolerated well with no nausea vomiting. Patient was also instructed to Follow-up with a primary care doctor in 3-5 days or if symptoms worsen and continue return to emergency room as soon as possible. At time of discharge, the patient does not seem toxic or ill in appearance. No acute signs of distress noted. Patient agrees to discharge treatment plan of care. No further questions noted by the patient. Critical care attestation.: If time is entered above; I have spent that time in minutes in the direct care of this critically ill patient, excluding procedure time. ED Disposition Clinical Impression: Nausea & vomiting Qualifiers: Vomiting type: unspecified Vomiting Intractability: non-intractable Qualified Code(s): R11.2 - Nausea with vomiting, unspecified UTI (urinary tract infection) Qualifiers: Urinary tract infection type: acute cystitis Hematuria presence: without hematuria Qualified Code(s): N30.00 - Acute cystitis without hematuria Disposition: 01 HOME / SELF CARE / HOMELESS Is pt being admited?: No Does the pt Need Aspirin: No Condition: Stable Instructions: Nausea and Vomiting, Adult, Urinary Tract Infection, Adult Additional Instructions: Follow-up with a primary care doctor in 3-5 days or if symptoms worsen and continue return to emergency room as soon as possible. Prescriptions: Sulfamethoxazole/Trimethoprim [Bactrim DS TAB] 1 each PO BID #14 tablet Metoclopramide [Reglan] 10 mg PO BID PRN #12 tab PRN Reason: nausea Referrals: PRIMARY MD BUTCH [Primary Care Provider] - 3-5 Days AMRIK MCCLELLAN MD [Staff Physician] - 3-5 Days Forms: Work/School Release Form(ED) Time of Disposition: 16:16
== END 2021-07-19 17:14 | disposition home or self-care (01) ==
LOC: ED 12:17
DX: N39.0 Urinary tract infection, site not specified (principal); R11.2 Nausea with vomiting, unspecified; K21.9 Gastro-esophageal reflux disease without esophagitis; F12.90 Cannabis use, unspecified, uncomplicated; Z79.899 Other long term (current) drug therapy; Z88.0 Allergy status to penicillin
CPT/HCPCS: 36415; 76700; 80053; 81001; 83690; 84703; 85025; 87086; 96361; 96374; 96375; 99284; J1200; J2765; J7030

== ENCOUNTER 2022-05-18 21:28 | Emergency (ER) | payer SELFPAY ==
[2022-05-18] MEDS ORDERED: ONDANSETRON 4 MG ODT TAB PO ONE (21:38)
[2022-05-19] MEDS ORDERED: SODIUM CHLORIDE 0.9% 1000 ML 1,000 ML IV ONE (01:20)
[2022-05-19] MEDS ORDERED: diphenhydrAMINE 50 MG/ML VIAL IV ONE (01:20)
[2022-05-19] MEDS ORDERED: FAMOTIDINE 20 MG/2 ML INJ IV ONE (01:20)
[2022-05-19] MEDS ORDERED: KETOROLAC 30 MG/1 ML INJ IV ONE (01:20)
[2022-05-19 01:48] LABS: Hematocrit 33.6 % (30.3-42.9); Hemoglobin 10.5 gm/dl (10.1-14.3); Mean Corpuscular HGB Conc 31 % (30-34); Mean Corpuscular Volume 78 fl (79-97); Platelet Count 283 K/mm3 (140-440); Red Blood Count 4.32 M/mm3 (3.65-5.03); Red Cell Distribution Width 19.5 % (13.2-15.2)
[2022-05-19 01:55] LABS: Bacteria,Urine 2+ /HPF (Negative); Mucus,Urine 3+ /HPF
[2022-05-19 02:04] LABS: Alanine Aminotransferase 60 units/L (7-56); Albumin 4.5 g/dL (3.9-5); BUN/Creatinine Ratio 11; Blood Urea Nitrogen 9 mg/dL (7-17); Calcium 9.2 mg/dL (8.4-10.2); Hemolysis Index 0
[2022-05-19 02:04] LABS: Bilirubin,Urine Negative (Negative); Blood,Urine Moderate (Negative); Color,Urine Yellow (Yellow); PH,Urine 6.5 (5.0-7.0); Protein,Urine 300 mg/dL mg/dL (Negative); Urobilinogen,Urine 0.2 mg/dL (<2.0)
[2022-05-19 02:38] LABS: Basophils % (Manual) 0 % (0.0-1.8); Eosinophils % (Manual) 0 % (0.0-4.3); Total Cells Counted 100
[2022-05-19 02:39] LABS: Hypochromasia 1+; Platelet Estimate Consistent w Auto
--- NOTE | 2022-05-19 03:15 | Cat Scan Report ---
CT ABDOMEN AND PELVIS WITH CONTRAST INDICATION / CLINICAL INFORMATION: Unspecified abdominal pain with nausea, vomiting and diarrhea. TECHNIQUE: Axial CT images were obtained through the abdomen and pelvis after an unspecified amount and type of IV contrast. All CT scans at this location are performed using CT dose reduction for ALARA by means of automated exposure control. COMPARISON: Complete abdominal ultrasound from 07/19/2021. CT abdomen and pelvis with contrast from 07/16/2017. FINDINGS: LOWER CHEST: No significant abnormality. LIVER: No significant abnormality. GALLBLADDER: No significant abnormality. BILE DUCTS: No significant abnormality. PANCREAS: No significant abnormality. SPLEEN: No significant abnormality. ADRENALS: No significant abnormality. RIGHT KIDNEY/URETER: No significant abnormality. LEFT KIDNEY/URETER: No significant abnormality. STOMACH/SMALL BOWEL: There is a small uncomplicated hiatal hernia. No other significant abnormality. COLON: There is mild thickening of the colon from the hepatic flexure through the rectum. No other si gnificant abnormality. APPENDIX: Surgically absent. PERITONEUM: No free fluid. No free air. No fluid collection. LYMPH NODES: No significant adenopathy. VASCULATURE: No significant abnormality. URINARY BLADDER: No significant abnormality. REPRODUCTIVE ORGANS: No significant abnormality. ADDITIONAL FINDINGS: None. BONES: No significant abnormality IMPRESSION: Suspected uncomplicated colitis without other acute findings to explain the patient's complaints. Signer Name: Juan Jose Gomez MD Signed: 05/19/2022 3:10 AM Workstation Name: [id number]
[2022-05-19] MEDS ORDERED: metroNIDAZOLE/NS 500 MG/100 ML 500 MG/100 ML BAG IV ONE (03:16)
[2022-05-19] MEDS ORDERED: levoFLOXacin 500 MG TAB PO ONE (03:16)
--- NOTE | 2022-05-19 05:18 | Emergency Department Report ---
ED N/V/D HPI - General Chief complaint: Nausea/Vomiting/Diarrhea Stated complaint: VOMITING, LOSS OF BALANCE, HEADACHE Source: patient, family Mode of arrival: Wheelchair Limitations: No Limitations - History of Present Illness Initial comments: Patient is a 37-year-old -[place] female with a history of GERD who presents to the ED with complaint of acute onset persistent diffuse abdominal pain, nausea, vomiting and diarrhea for the last 4 days. Patient states that th e last minute she ever ate was at a restaurant during a green party event and since then she has been having worsening diffuse abdominal pain, nausea and vomiting and diarrhea. Patient states that in the last 2 days she has not been able to keep anything down including fluids. Patient states that no one else at home has had similar symptoms. Patient denies fever, chills, dizziness, syncope, chest pain or shortness of breath, dysuria, urinary frequency and urgency, vaginal bleeding or vaginal discharge and low back pain. MD complaint: nausea, vomiting, diarrhea, abdominal pain -: Gradual, days(s) (4) Description of Vomiting: food contents, watery, bilious Description of Diarrhea: water Associated Abdominal Pain: Yes (diffuse) Location: diffuse Radiation: none Severity: severe Pain Scale: 8 Quality: cramping, aching, sharp Consistency: constant Improves with: none Worsens with: bowel movement, vomiting Context: possible food poisoning Associated Symptoms: denies other symptoms, myalgias, loss of appetite, malaise, nausea/vomiting, weakness. denies: chest pain, cough, diaphoresis, fever/chills, headaches, rash, dysuria, shortness of breath, syncope - Related Data Previous Rx's Medication Instructions Recorded Last Taken Type Ciprofloxacin HCl [Ciprofloxacin 500 mg PO Q12HR #14 tab 04/11/19 Unknown Rx TAB] HYDROcodone/APAP 5-325 [[place] 1 - 2 each PO Q6HR PRN #14 tablet 04/11/19 Unknown Rx 5/325] Ibuprofen [Motrin 800 MG tab] 800 mg PO Q8HR PRN #20 tablet 04/11/19 Unknown Rx Metoclopramide [Reglan] 10 mg PO BID PRN #12 tab 07/19/21 Unknown Rx Sulfamethoxazole/Trimethoprim 1 each PO BID #14 tablet 07/19/21 Unknown Rx [Bactrim DS TAB] Ciprofloxacin HCl 500 mg PO Q12H #20 tab 05/19/22 Unknown Rx Dicyclomine [Bentyl] 20 mg PO Q6H #30 tablet 05/19/22 Unknown Rx Ketorolac [Toradol] 10 mg PO Q8H PRN #20 tab 05/19/22 Unknown Rx Ondansetron [Zofran Odt] 4 mg PO Q6HR PRN #20 tab.rapdis 05/19/22 Unknown Rx metroNIDAZOLE [Flagyl] 500 mg PO Q8HR #30 tablet 05/19/22 Unknown Rx Allergies Allergy/AdvReac Type Severity Reaction Status Date / Time Penicillins Allergy Swelling Verified 07/19/21 12:19 ED Review of Systems ROS: Stated complaint: VOMITING, LOSS OF BALANCE, HEADACHE Other details as noted in HPI Constitutional: denies: chills, fever Eyes: denies: eye pain, eye discharge, vision change ENT: denies: ear pain, throat pain Respiratory: denies: cough, shortness of breath, wheezing Cardiovascular: denies: chest pain, palpitations Endocrine: no symptoms reported Gastrointestinal: abdominal pain, nausea, vomiting, diarrhea Genitourinary: denies: urgency, dysuria, discharge Musculoskeletal: denies: back pain, joint swelling, arthralgia Skin: denies: rash, lesions Neurological: denies: headache, weakness, paresthesias Psychiatric: denies: anxiety, depression Hematological/Lymphatic: denies: easy bleeding, easy bruising ED Past Medical Hx - Past Medical History Hx GERD: Yes Additional medical history: hiatal hernia, first degree AV block (states possible) - Surgical History Hx Appendectomy: Yes Additional Surgical History: Back surgery, 1997 - Social History Smoking Status: Never Smoker Substance Use Type: Marijuana - Medications Home Medications: Home Medications Medication Instructions Recorded Confirmed Last Taken Type Ciprofloxacin HCl [Ciprofloxacin 500 mg PO Q12HR #14 tab 04/11/19 Unknown Rx TAB] HYDROcodone/APAP 5-325 [[place] 1 - 2 each PO Q6HR PRN #14 tablet 04/11/19 Unknown Rx 5/325] Ibuprofen [Motrin 800 MG tab] 800 mg PO Q8HR PRN #20 tablet 04/11/19 Unknown Rx Metoclopramide [Reglan] 10 mg PO BID PRN #12 tab 07/19/21 Unknown Rx Sulfamethoxazole/Trimethoprim 1 each PO BID #14 tablet 07/19/21 Unknown Rx [Bactrim DS TAB] Ciprofloxacin HCl 500 mg PO Q12H #20 tab 05/19/22 Unknown Rx Dicyclomine [Bentyl] 20 mg PO Q6H #30 tablet 05/19/22 Unknown Rx Ketorolac [Toradol] 10 mg PO Q8H PRN #20 tab 05/19/22 Unknown Rx Ondansetron [Zofran Odt] 4 mg PO Q6HR PRN #20 tab.rapdis 05/19/22 Unknown Rx metroNIDAZOLE [Flagyl] 500 mg PO Q8HR #30 tablet 05/19/22 Unknown Rx ED Physical Exam - General Limitations: No Limitations General appearance: alert, in no apparent distress - Head Head exam: Present: atraumatic, normocephalic, normal inspection - Eye Eye exam: Present: normal appearance, PERRL, EOMI Pupils: Present: normal accommodation - ENT ENT exam: Present: normal exam, normal orophraynx, mucous membranes moist, TM's normal bilaterally, normal external ear exam - Neck Neck exam: Present: normal inspection, full ROM. Absent: tenderness - Respiratory Respiratory exam: Present: normal lung sounds bilaterally. Absent: respiratory distress, wheezes, rales, rhonchi, stridor, chest wall tenderness, accessory muscle use, decreased breath sounds, prolonged expiratory - Cardiovascular Cardiovascular Exam: Present: regular rate, normal rhythm, normal heart sounds. Absent: systolic murmur, diastolic murmur, rubs, gallop - GI/Abdominal GI/Abdominal exam: Present: soft, tenderness (diffuse), normal bowel sounds. Absent: guarding, rebound, hyperactive bowel sounds, hypoactive bowel sounds, organomegaly, mass - Extremities Exam Extremities exam: Present: normal inspection, full ROM, normal capillary refill. Absent: tenderness, pedal edema, joint swelling, calf tenderness - Back Exam Back exam: Present: normal inspection, full ROM. Absent: tenderness, CVA tenderness (R), CVA tenderness (L), muscle spasm, paraspinal tenderness, vertebral tenderness - Neurological Exam Neurological exam: Present: alert, oriented X3, CN II-XII intact, normal gait, reflexes normal - Psychiatric Psychiatric exam: Present: normal affect, normal mood - Skin Skin exam: Present: warm, dry, intact, normal color. Absent: rash ED Course Vital Signs 05/18/22 21:32 Temperature 98.0 F Pulse Rate 64 Respiratory 18 Rate Blood Pressure 136/88 O2 Sat by Pulse 100 Oximetry ED Medical Decision Making - Lab Data Result diagrams: 05/19/22 01:27 05/19/22 01:27 - Radiology Data Radiology results: report reviewed, image reviewed [facility] [address] [place] [address] Cat Scan Report Signed Patient: ADEN BAR MR#: [id number] : 1985 Acct:[id number] Age/Sex: 37 / F ADM Date: 05/18/22 Loc: ED Attending Dr: Ordering Physician: CARMINE PEREZ Date of Service: 05/19/22 Procedure(s): CT abdomen pelvis w con Accession Number(s): [id number] cc: CARMINE PEREZ CT ABDOMEN AND PELVIS WITH CONTRAST INDICATION / CLINICAL INFORMATION: Unspecified abdominal pain with nausea, vomiting and diarrhea. TECHNIQUE: Axial CT images were obtained through the abdomen and pelvis after an unspecified amount and type of IV contrast. All CT scans at this location are performed using CT dose reduction for ALARA by means of automated exposure control. COMPARISON: Complete abdominal ultrasound from 07/19/2021. CT abdomen and pelvis with contrast from 07/16/2017. FINDINGS: LOWER CHEST: No significant abnormality. LIVER: No significant abnormality. GALLBLADDER: No significant abnormality. BILE DUCTS: No significant abnormality. PANCREAS: No significant abnormality. SPLEEN: No significant abnormality. ADRENALS: No significant abnormality. RIGHT KIDNEY/URETER: No significant abnormality. LEFT KIDNEY/URETER: No significant abnormality. STOMACH/SMALL BOWEL: There is a small uncomplicated hiatal hernia. No other significant abnormality. COLON: There is mild thickening of the colon from the hepatic flexure through the rectum. No other significant abnormality. APPENDIX: Surgically absent. PERITONEUM: No free fluid. No free air. No fluid collection. LYMPH NODES: No significant adenopathy. VASCULATURE: No significant abnormality. URINARY BLADDER: No significant abnormality. REPRODUCTIVE ORGANS: No significant abnormality. ADDITIONAL FINDINGS: None. BONES: No significant abnormality IMPRESSION: Suspected uncomplicated colitis without other acute findings to explain the patient's complaints. Signer Name: Juan Jose Gomez MD Signed: 05/19/2022 3:10 AM Workstation Name: [id number] Transcribed By: TOMMY Dictated By: Juan Jose Gomez MD Electronically Authenticated By: Juan Jose Gomez MD Signed Date/Time: 05/19/22309 DD/ 6 TD/TT: Print - Medical Decision Making This is a 37-year-old -[place] female with a history of GERD who presents to the ED with complaint of acute onset persistent diffuse abdominal pain, nausea, vomiting and diarrhea for the last 4 days. Patient states that the last minute she ever ate was at a restaurant during a green party event and since then she has been having worsening diffuse abdominal pain, nausea and vomiting and diarrhea. Patient states that in the last 2 days she has not been able to keep anything down including fluids. Patient states that no one else at home has had similar symptoms. In the ED, patient is alert and oriented x3 and is not in any distress. Patient was treated for nausea and vomiting and also given pain medications and antacids. Patient also was treated with normal saline 1 L IV bolus x1. Lab test results were reviewed and showed AST of 41 and ALT of 60, also lipase of 137. The rest of the lab test result are nonactionable. The abdomen pelvis CT scan with IV contrast showed suspected uncomplicated colitis without other acute findings to explain the patient's complaints. Patient was treated in the ED with Flagyl 500 mg IV x1 and Levaquin 500 mg p.o. x1. On reevaluation, patient's pain is well controlled medication. Patient passed oral fluid challenge in the ED. Patient was discharged home on medications and advised to follow-up with her primary care physician in 5 to 7 days for re evaluation or return to the ED immediately if symptoms get worse. - Differential Diagnosis GERD; gastroenteritis; UTI; appendicitis; pancreatitis; colitis ovarian cys Critical care attestation.: If time is entered above; I have spent that time in minutes in the direct care of this critically ill patient, excluding procedure time. ED Disposition Clinical Impression: Nausea, vomiting and diarrhea, Generalized abdominal pain, Acute colitis Disposition: 01 HOME / SELF CARE / HOMELESS Is pt being admited?: No Does the pt Need Aspirin: No Condition: Stable Instructions: Viral Gastroenteritis, Adult, [id number], Abdominal Pain, Adult, [id number], Nausea and Vomiting, Adult, [id number], Diarrhea, Adult, [id number], Colitis Additional Instructions: All lab test results were reviewed and are all nonactionable except for slightly elevated lipase level as well as elevated liver enzymes. The abdomen pelvis CT scan with IV contrast showed suspected uncomplicated colitis without other acute findings to explain the patient's complaints. Therefore take medication with food, drink plenty fluids and follow-up with your primary care physician in 5 to 7 days for reevaluation. Return to the ED immediately if symptoms get worse. Prescriptions: Dicyclomine [Bentyl] 20 mg PO Q6H #30 tablet Ciprofloxacin HCl 500 mg PO Q12H #20 tab metroNIDAZOLE [Flagyl] 500 mg PO Q8HR #30 tablet Ketorolac [Toradol] 10 mg PO Q8H PRN #20 tab PRN Reason: Pain Ondansetron [Zofran Odt] 4 mg PO Q6HR PRN #20 tab.rapdis PRN Reason: Nausea Referrals: AMIRK MCCLELLAN MD [Staff Physician] - 7-10 days Forms: Work/School Release Form(ED) Time of Disposition: 05:23 Print Language: KAZAKH
[2022-05-19 06:38] VITALS: BP 127/85
== END 2022-05-19 06:39 | disposition home or self-care (01) ==
LOC: ED 21:28
DX: K52.9 Noninfective gastroenteritis and colitis, unspecified (principal); R11.2 Nausea with vomiting, unspecified; K21.9 Gastro-esophageal reflux disease without esophagitis; F12.90 Cannabis use, unspecified, uncomplicated; Z98.890 Other specified postprocedural states; Z88.0 Allergy status to penicillin; Z79.899 Other long term (current) drug therapy
CPT/HCPCS: 36415; 74177; 80053; 81001; 83690; 84703; 85007; 85025; 96361; 96365; 96375; 99284; J1200; J1885; J3490; J7030; J7517; Q9967; Q0162